=== PATIENT | female | born 1970 | race Caucasian/White ===

== ENCOUNTER → 2016-06-04 | Outpatient (CLI) | payer MEDICARE | END | disposition home or self-care (01) | LOC: LABWHC1 15:12 | PROVIDERS: ATTEND Nurse Practitioner | DX: Z51.81 Encounter for therapeutic drug level monitoring (principal) | CPT/HCPCS: 36415; 80178 ==

== ENCOUNTER → 2017-01-07 | Outpatient (CLI) | payer MEDICARE ==
--- NOTE | 2017-01-09 09:04 | MM ---
Reason for exam: screening (asymptomatic). Last mammogram was performed 1 year and 5 months ago. Physical Findings: A clinical breast exam by your physician is recommended on an annual basis and results should be correlated with mammographic findings. MG 3D Screening Mammo W/Cad Bilateral CC and MLO view(s) were taken. Prior study comparison: July 26, 2015, bilateral MG screening mammo w CAD. May 05, 2013, bilateral digital screening mammo w/CAD. The breast tissue is heterogeneously dense. This may lower the sensitivity of mammography. Finding: There are typically benign round, regional calcifications in the anterior position of the left breast. There is no discrete abnormality. ASSESSMENT: Benign, BI-RAD 2 RECOMMENDATION: Routine screening mammogram of both breasts in 1 year.
== END | disposition home or self-care (01) ==
LOC: RADMAMWWP 10:18
PROVIDERS: ATTEND Family Medicine
DX: Z12.31 Encounter for screening mammogram for malignant neoplasm of breast (principal)
CPT/HCPCS: 77063; G0202

== ENCOUNTER 2017-01-29 15:52 | Emergency (ER) | payer MEDICARE ==
[2017-01-29 15:59] VITALS: TEMP 99.1
--- NOTE | 2017-01-29 16:07 | ED ---
General Adult HPI - General Chief complaint: Abdominal Pain Stated complaint: abdominal pain Time Seen by Provider: 01/29/17 16:06 Source: patient Mode of arrival: ambulatory Limitations: no limitations - History of Present Illness Initial comments: Mary is a 46-year-old female who presents to the emergency department for evaluation of sudden onset of abdominal pain. Mary reports that she was in her usual state of health until around 1 PM today when she had sudden stabbing abdominal pain that caused her to double over. The pain was located in the. Umbilical region that radiated throughout her entire abdomen. She reports that she was concerned that maybe she was hungry and drink a glass of milk and had a Pop Tart which made the pain worse. She reports she applied a heating pad to the abdomen thinking this was similar to cramps however that did not help with the pain. The pain persisted for a number of hours which prompted her to come to the emergency department for further evaluation. Patient reports that her last bowel movement was this afternoon, immediately prior to the beginning of pain. She reports it was normal in color, caliber and consistency. She denies any hematochezia or melena. She denies any lower urinary tract symptoms. She denies any history of kidney stones. Patient denies any History of irritable bowel disease or any chronic abdominal pain. She did have a colonoscopy approximately 15 years ago for hemorrhoids. She has not had any follow-up colonoscopy since that time. That her last menses was approximately 3 months ago, she has followed with her tread booker about this and has been told that she is perimenopausal. She states that she had a pelvic ultrasound approximately 3 months ago which revealed some ovarian cysts which were unchanged from previous. Patient reports that she is not sexually active and is not concerning for any exposure sexual transmitted infections. - Related Data Home Medications Medication Instructions Recorded Confirmed ARIPiprazole [Abilify] 10 mg PO DAILY 02/15/14 05/05/14 Amitriptyline HCl [Amitriptyline 10 mg PO BID 02/15/14 05/05/14 HCl] Baclofen [Baclofen] 10 mg PO TID PRN 02/15/14 05/05/14 Budesonide-Formot 160-4.5 Mcg 2 puff INHALATION BID 02/15/14 05/05/14 [Symbicort 160-4.5 Mcg Inhaler] Cholecalciferol [Vitamin D3] 1,000 units PO DAILY 02/15/14 05/05/14 Fenofibrate [Fenofibrate] 160 mg PO DAILY 02/15/14 05/05/14 Fluticasone Propionate 16 gm NASAL BID 02/15/14 05/05/14 Gabapentin 800 mg PO TID 02/15/14 05/05/14 Glimepiride [Amaryl] 2 mg PO BID 02/15/14 05/05/14 Hydrocodone/Acetaminophen 10 mg PO TID PRN 02/15/14 05/05/14 [Hydrocodone/Acetaminophen 10-325] LORazepam [LORazepam] 0.5 mg PO TID PRN 02/15/14 05/05/14 [place] Carbonate 300 mg PO TID 02/15/14 05/05/14 Pantoprazole Sodium 40 mg PO DAILY 02/15/14 05/05/14 cloNIDine HCL [cloNIDine HCL] 0.2 mg PO HS 02/15/14 05/05/14 lamoTRIgine [lamoTRIgine] 200 mg PO DAILY 02/15/14 05/05/14 metFORMIN HCL [metFORMIN HCL] 500 mg PO BID 02/15/14 05/05/14 Previous Rx's Medication Instructions Recorded Docusate Sodium [Dok] 100 mg PO DAILY #30 capsule 01/29/17 Allergies Allergy/AdvReac Type Severity Reaction Status Date / Time No Known Allergies Allergy Verified 01/29/17 15:55 Review of Systems ROS Statement: Those systems with pertinent positive or pertinent negative responses have been documented in the HPI. ROS Other: All systems not noted in ROS Statement are negative. Constitutional: Reports: chills ENT: Denies: throat pain Respiratory: Denies: cough, dyspnea Cardiovascular: Denies: chest pain, palpitations Endocrine: Denies: fatigue Gastrointestinal: Reports: abdominal pain, nausea. Denies: vomiting, diarrhea, constipation, hematemesis, melena, hematochezia Genitourinary: Reports: abnormal menses (perimenopausal). Denies: urgency, dysuria, frequency Musculoskeletal: Denies: back pain Skin: Denies: rash, lesions Neurological: Denies: headache, weakness Psychiatric: Denies: anxiety, depression Hematological/Lymphatic: Denies: easy bleeding, easy bruising Past Medical History Past Medical History: Diabetes Mellitus, Fibromyalgia, GERD/Reflux, Hyperlipidemia, Musculoskeletal Disorder History of Any Multi-Drug Resistant Organisms: MRSA Date of last positivie culture/infection: 2011 MDRO Source:: RT AXILLA Past Surgical History: Back Surgery, Section Additional Past Surgical History / Comment(s): PAIN CLINIC SERVICES. eye surgery, lump taken off vocal cord, LEFT CATARACT REMOVED Past Anesthesia/Blood Transfusion Reactions: Previous Problems w/ Anesthesia Additional Past Anesthesia/Blood Transfusion Reaction / Comment(s): problem coming out of anesthetic, STATES VERY EMOTIONAL AND ANXIOUS Past Psychological History: Anxiety, Depression Smoking Status: Current every day smoker Past Alcohol Use History: None Reported Past Drug Use History: None Reported - Past Family History Mother Family Medical History: COPD, Dementia, Memory Impairment Additional Family Medical History / Comment(s): depression General Exam Limitations: no limitations General appearance: alert, in no apparent distress Head exam: Present: atraumatic, normocephalic Eye exam: Present: normal appearance, PERRL ENT exam: Present: normal exam, normal oropharynx Neck exam: Present: normal inspection, other (well healed surigcal scar) Respiratory exam: Present: normal lung sounds bilaterally. Absent: respiratory distress Cardiovascular Exam: Present: regular rate, normal rhythm GI/Abdominal exam: Present: soft, tenderness, guarding, normal bowel sounds. Absent: distended, rebound, rigid Rectal exam: Present: deferred Extremities exam: Present: normal inspection Back exam: Present: normal inspection Neurological exam: Present: alert, oriented X3 Psychiatric exam: Present: normal affect Skin exam: Present: warm, dry Course Vital Signs 01/29/17 01/29/17 15:56 17:52 Temperature 99.1 F Pulse Rate 68 61 Respiratory 18 18 Rate Blood Pressure 156/73 124/71 O2 Sat by Pulse 98 97 Oximetry - Reevaluation(s) Reevaluation #1: She reevaluated, sitting comfortably in ER bed. 01/29/17 18:20 Medical Decision Making - Medical Decision Making The patient was seen and evaluated, history was obtained from the patient History and physical exam are concerning for acute onset of area umbilical abdominal pain on exam the pain is worse in the right lower quadrant I will obtain labs, urinalysis and a computed tomography scan to evaluate cause of abdominal pain Urinanalysis with gross contamination with squamous cells, no evidence of infection Labs with mild leukocytosis DT of the abdomen reveals no acute bowel pathology, there is noted to have gallstones however her pain is not in this region I don't feel it is related to her presentation today All lab and CT findings were discussed with the patient. I advised the patient that her pain could be related to gas. I offered her suppositories and recommended she take a stool softener she did seem to have a heavy stool burden Advised the patient that based on her CT scans there is no evidence of acute appendicitis at this time. Advised to maintain soft diet, take stool softeners and return to the emergency department should she have any worsening abdominal pain, fevers, diarrhea, inability tolerate oral intake. All questions pertaining to care were answered to the best of my ability the patient was discharged home in stable condition. - Lab Data Result diagrams: 01/29/17 16:30 01/29/17 16:30 Lab Results 01/29/17 01/29/17 01/29/17 Range/Units 16:30 16:30 16:41 WBC 13.3 H (3.8-10.6) k/uL RBC 4.57 (3.80-5.40) m/uL Hgb 14.2 (11.4-16.0) gm/dL Hct 43.4 (34.0-46.0) % MCV 95.0 (80.0-100.0) fL MCH 31.0 (25.0-35.0) pg MCHC 32.7 (31.0-37.0) g/dL RDW 12.9 (11.5-15.5) % Plt Count 290 (150-450) k/uL Neutrophils % 74 % Lymphocytes % 18 % Monocytes % 4 % Eosinophils % 3 % Basophils % 1 % Neutrophils # 9.8 H (1.3-7.7) k/uL Lymphocytes # 2.3 (1.0-4.8) k/uL Monocytes # 0.5 (0-1.0) k/uL Eosinophils # 0.4 (0-0.7) k/uL Basophils # 0.1 (0-0.2) k/uL Sodium 139 (137-145) mmol/L Potassium 4.4 (3.5-5.1) mmol/L Chloride 106 (98-107) mmol/L Carbon Dioxide 21 L (22-30) mmol/L Anion Gap 12 mmol/L BUN 10 (7-17) mg/dL Creatinine 0.73 (0.52-1.04) mg/dL Est GFR (MDRD) Af Amer >60 (>60 ml/min/1.73 sqM) Est GFR (MDRD) Non-Af >60 (>60 ml/min/1.73 sqM) Glucose 196 H (74-99) mg/dL Calcium 10.0 (8.4-10.2) mg/dL Total Bilirubin 0.2 (0.2-1.3) mg/dL AST 26 (14-36) U/L ALT 41 (9-52) U/L Alkaline Phosphatase 78 (38-126) U/L Total Protein 7.4 (6.3-8.2) g/dL Albumin 4.5 (3.5-5.0) g/dL Urine Color Urine Appearance (Clear) Urine pH (5.0-8.0) Ur Specific [place] (1.001-1.035) Urine Protein (Negative) Urine Glucose (UA) (Negative) Urine Ketones (Negative) Urine Blood (Negative) Urine Nitrite (Negative) Urine Bilirubin (Negative) Urine Urobilinogen (<2.0) mg/dL Ur Leukocyte Esterase (Negative) Urine RBC (0-5) /hpf Urine WBC (0-5) /hpf Ur Squamous Epith Cells (0-4) /hpf Urine Mucus (None) /hpf Urine HCG, Qual Not Detected (Not Detectd) 01/29/17 Range/Units 16:41 WBC (3.8-10.6) k/uL RBC (3.80-5.40) m/uL Hgb (11.4-16.0) gm/dL Hct (34.0-46.0) % MCV (80.0-100.0) fL MCH (25.0-35.0) pg MCHC (31.0-37.0) g/dL RDW (11.5-15.5) % Plt Count (150-450) k/uL Neutrophils % % Lymphocytes % % Monocytes % % Eosinophils % % Basophils % % Neutrophils # (1.3-7.7) k/uL Lymphocytes # (1.0-4.8) k/uL Monocytes # (0-1.0) k/uL Eosinophils # (0-0.7) k/uL Basophils # (0-0.2) k/uL Sodium (137-145) mmol/L Potassium (3.5-5.1) mmol/L Chloride (98-107) mmol/L Carbon Dioxide (22-30) mmol/L Anion Gap mmol/L BUN (7-17) mg/dL Creatinine (0.52-1.04) mg/dL Est GFR (MDRD) Af Amer (>60 ml/min/1.73 sqM) Est GFR (MDRD) Non-Af (>60 ml/min/1.73 sqM) Glucose (74-99) mg/dL Calcium (8.4-10.2) mg/dL Total Bilirubin (0.2-1.3) mg/dL AST (14-36) U/L ALT (9-52) U/L Alkaline Phosphatase (38-126) U/L Total Protein (6.3-8.2) g/dL Albumin (3.5-5.0) g/dL Urine Color Yellow Urine Appearance Cloudy H (Clear) Urine pH 7.0 (5.0-8.0) Ur Specific [place] 1.017 (1.001-1.035) Urine Protein 2+ H (Negative) Urine Glucose (UA) Negative (Negative) Urine Ketones Negative (Negative) Urine Blood Small H (Negative) Urine Nitrite Negative (Negative) Urine Bilirubin Negative (Negative) Urine Urobilinogen <2.0 (<2.0) mg/dL Ur Leukocyte Esterase Negative (Negative) Urine RBC 1 (0-5) /hpf Urine WBC 2 (0-5) /hpf Ur Squamous Epith Cells 11 H (0-4) /hpf Urine Mucus Rare H (None) /hpf Urine HCG, Qual (Not Detectd) Disposition Clinical Impression: Abdominal pain Disposition: HOME SELF-CARE Condition: Good Instructions: Abdominal Pain (ED) Prescriptions: Docusate Sodium [Dok] 100 mg PO DAILY #30 capsule Referrals: Rachel Burns DO [Primary Care Provider] - 1-2 days
[2017-01-29] MEDS ORDERED: RX INFO: IV CONTRAST WAS GIVEN 1 EACH MISC MISCELLANE PRN (16:17)
[2017-01-29 16:43] LABS: Basophils # (A) 0.1 k/uL (0-0.2); Basophils % (A) 1 %; CH 31.1; CHCM 32.9; Eosinophils # (A) 0.4 k/uL (0-0.7); Eosinophils % (A) 3 %; HCT 43.4 % (34.0-46.0); HDW 2.37; HGB 14.2 gm/dL (11.4-16.0); Luc # (Auto) 0.16; Luc % (Auto) 1; Lymphocytes # (A) 2.3 k/uL (1.0-4.8); Lymphocytes % (A) 18 %; MCHC 32.7 g/dL (31.0-37.0); Mean Platelet Volume 7.4; Monocytes # (A) 0.5 k/uL (0-1.0); Monocytes % (A) 4 %; Neutrophils # (A) 9.8 k/uL (1.3-7.7); Neutrophils % (A) 74 %; RBC 4.57 m/uL (3.80-5.40); RDW 12.9 % (11.5-15.5); WBC 13.3 k/uL (3.8-10.6); WBC (Perox) 12.14
[2017-01-29 16:53] LABS: ALT 41 U/L (9-52); AST 26 U/L (14-36); Alkaline Phosphatase 78 U/L (38-126); Anion Gap 12 mmol/L; Blood Urea Nitrogen 10 mg/dL (7-17); Carbon Dioxide 21 mmol/L (22-30); Chloride 106 mmol/L (98-107); Glucose 196 mg/dL (74-99); Non-African American GFR(MDRD) >60 (>60 ml/min/1.73 sqM); Potassium 4.4 mmol/L (3.5-5.1); Sodium 139 mmol/L (137-145); Total Bilirubin 0.2 mg/dL (0.2-1.3); Total Protein 7.4 g/dL (6.3-8.2)
[2017-01-29 16:56] LABS: Appearance,Urine Cloudy (Clear); Bilirubin,Urine Negative (Negative); Glucose,Urine (UA) Negative (Negative); Ketones,Urine Negative (Negative); Leukocyte Esterase,Urine Negative (Negative); Mucus,Urine Rare /hpf; Nitrite,Urine Negative (Negative); Particle Count 4603; Protein,Urine 2+ (Negative); RBC,Urine 1 /hpf (0-5); Specific Gravity,Urine 1.017 (1.001-1.035); Squamous Epithelial Cell,Urine 11 /hpf (0-4); UA Billing (MACRO vs. MICRO) MICRO; Urobilinogen,Urine <2.0 mg/dL (<2.0); WBC,Urine 2 /hpf (0-5)
--- NOTE | 2017-01-29 17:56 | CT ---
EXAMINATION TYPE: CT abdomen pelvis w con DATE OF EXAM: 01/29/2017 COMPARISON: NONE HISTORY: Right lower quadrant pain and nausea today. CT DLP: 746.70 mGycm Automated exposure control for dose reduction was used. TECHNIQUE: Helical acquisition of images from the lung bases through the pelvis have been completed. CONTRAST: Performed without Oral Contrast and with IV Contrast, patient injected with 100 mL of Omnipaque 300. FINDINGS: LUNG BASES: No significant abnormality is appreciated. AORTA: No significant abnormality is appreciated. LIVER/GB: The liver is enlarged and shows low attenuation likely due to hepatic steatosis. Dependent high attenuation within the gallbladder compatible with stones. PANCREAS: No significant abnormality is seen. SPLEEN: No significant abnormality is seen. ADRENALS: No significant abnormality is seen. KIDNEYS: No significant abnormality is seen. REPRODUCTIVE ORGANS: No significant abnormality is seen BOWEL: No significant abnormality is seen. The appendix is normal. FREE AIR: No Free Air visible. ASCITES: None visible. PELVIC ADENOPATHY: None visualized. RETROPERITONEAL ADENOPATHY: No Retroperitoneal Adenopathy visible. URINARY BLADDER: No significant abnormality is seen. OSSEOUS STRUCTURES: No significant abnormality is seen. IMPRESSION: HEPATIC STEATOSIS, CHOLELITHIASIS.
[2017-01-29 18:39] VITALS: BP 148/78; PULSE 72; RESP 16
== END 2017-01-29 18:39 | disposition home or self-care (01) ==
LOC: EC 15:52
DX: R10.9 Unspecified abdominal pain (principal); D72.829 Elevated white blood cell count, unspecified; E11.9 Type 2 diabetes mellitus without complications; K21.9 Gastro-esophageal reflux disease without esophagitis; M79.7 Fibromyalgia; F32.9 Major depressive disorder, single episode, unspecified; F17.200 Nicotine dependence, unspecified, uncomplicated; Z86.14 Personal history of Methicillin resistant Staphylococcus aureus infection; Z79.51 Long term (current) use of inhaled steroids; Z87.42 Personal history of other diseases of the female genital tract; Z79.84 Long term (current) use of oral hypoglycemic drugs; Z79.899 Other long term (current) drug therapy
CPT/HCPCS: 99284 ×2; 36415; 80053; 85025; 81001; 81025; 74177; Q9967

== ENCOUNTER 2017-10-22 15:39 | Emergency (ER) | payer OTHER, MEDICARE ==
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
[2017-10-22 16:46] LABS: Basophils # (A) 0.1 k/uL (0-0.2); Basophils % (A) 1 %; Eosinophils # (A) 0.2 k/uL (0-0.7); Eosinophils % (A) 2 %; HCT 35.7 % (34.0-46.0); HGB 11.8 gm/dL (11.4-16.0); Lymphocytes # (A) 2.1 k/uL (1.0-4.8); Lymphocytes % (A) 25 %; MCH 31.3 pg (25.0-35.0); MCHC 33.2 g/dL (31.0-37.0); MCV 94.1 fL (80.0-100.0); Mean Platelet Volume 7.7; Monocytes # (A) 0.3 k/uL (0-1.0); Monocytes % (A) 4 %; Neutrophils # (A) 5.6 k/uL (1.3-7.7); Neutrophils % (A) 66 %; Platelet Count 248 k/uL (150-450); RBC 3.79 m/uL (3.80-5.40); RDW 13.5 % (11.5-15.5); WBC 8.4 k/uL (3.8-10.6)
[2017-10-22 16:50] LABS: ALT 58 U/L (9-52); AST 33 U/L (14-36); Albumin 4.3 g/dL (3.5-5.0); Alkaline Phosphatase 86 U/L (38-126); Anion Gap 11 mmol/L; Blood Urea Nitrogen 17 mg/dL (7-17); Carbon Dioxide 23 mmol/L (22-30); Chloride 104 mmol/L (98-107); Glucose 298 mg/dL (74-99); Sodium 138 mmol/L (137-145); Total Bilirubin 0.3 mg/dL (0.2-1.3); Total Protein 6.8 g/dL (6.3-8.2)
[2017-10-22 16:51] LABS: Partial Thromboplastin Time 23.5 sec (22.0-30.0); Prothrombin Time 9.9 sec (9.0-12.0)
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
[2017-10-22 18:54] VITALS: BP 126/76; PULSE 77; RESP 18; TEMP 97.8
[2017-10-22] MEDS ORDERED: ORPHENADRINE 30 MG/ML 2 ML VIAL IVP STA (18:56)
== END 2017-10-22 19:16 | disposition home or self-care (01) ==
LOC: EC 15:39
DX: M79.671 Pain in right foot (principal); M79.672 Pain in left foot; E11.9 Type 2 diabetes mellitus without complications; M79.7 Fibromyalgia; K21.9 Gastro-esophageal reflux disease without esophagitis; E78.5 Hyperlipidemia, unspecified; F32.9 Major depressive disorder, single episode, unspecified; F41.9 Anxiety disorder, unspecified; F17.200 Nicotine dependence, unspecified, uncomplicated; Z86.14 Personal history of Methicillin resistant Staphylococcus aureus infection; Z79.51 Long term (current) use of inhaled steroids; Z79.84 Long term (current) use of oral hypoglycemic drugs; Z79.899 Other long term (current) drug therapy; V43.52XA Car driver injured in collision with other type car in traffic accident, initial encounter; Y92.410 Unspecified street and highway as the place of occurrence of the external cause
CPT/HCPCS: 36415; 93005; 80053; 85025; 85610; 85730; 73630; 71046; 71260; 74177; 99284; 96374; J2360; Q9967

== ENCOUNTER → 2018-04-03 | Outpatient (CLI) | payer MEDICARE ==
--- NOTE | 2018-04-03 14:16 | CONS ---
CONSULTATION DATE OF SERVICE: 04/12/2018 A 47-year-old lady who has been evaluated in the Sleep Center for possible obstructive sleep apnea-hypopnea syndrome and significant excessive daytime sleepiness. HISTORY OF PRESENT ILLNESS/SLEEP-WAKE EVALUATION: Patient's usual sleep schedule from around 10 p.m. until 6 a.m. She does have problem with falling asleep, but after falling asleep, has multiple awakenings from sleep and sometimes is difficult to initiate sleep again. She snores, wakes up with a choking, dry mouth, grinding teeth, panic attack, heartburn, sleep talking, restless legs, nocturia. She usually sleeps on the side position. She started to see her dreams right away after closing to eye. Sometimes she has vivid dreams. In the morning she wakes up tired, has difficulties to pay attention, falling asleep during the day, worries about her sleep, has problems with memory, concentration, irritability, depression and anxiety. [place] Sleepiness Scale significantly increased to 21. Positive history of possible hypnagogic hallucinations. PAST MEDICAL HISTORY: Positive for asthma, hypothyroidism, anxiety, depression, diabetes mellitus. PAST SURGICAL HISTORY: Neck surgery in 2010, tonsillectomy. REVIEW OF SYSTEMS: Multiple awakenings from sleep, hot flushes, sleepiness during the day. MEDICATIONS: Gabapentin, fenofibrate, Janumet, lamotrigine, iron supplement, bupropion, BuSpar, pantoprazole, lithium supplement, lithium carbonate, levothyroxine, D3, montelukast, quetiapine, duloxetine, lamotrigine, Flonase, [place], Dulcolax, Symbicort inhaler. SOCIAL HISTORY: Positive for smoking up to 2 packs a day for 30 years. Alcohol consumption rarely. FAMILY HISTORY: Hypertension, heart problems, hyperlipidemia, fibromyalgia, arthritis, asthma, sinus headaches, colon problems, emphysema, snoring, pneumonia, headaches, cancer, insomnia, acid reflux, also diabetes, thyroid problems, mental illness, restless legs. PHYSICAL EXAM: A 47-year-old, lady without distress. BP 120/68, HR 66, RR 16, height 5 foot 1 inch, weight 162 pounds, body mass index 30.6, temperature 98.0, oxygen saturation at room air 98%. OROPHARYNX: Small oropharyngeal air space. Low position of soft palate. Neck 15 inches in circumference, restriction of nasal breathing bilaterally. ABDOMEN: Obese. EXTREMITIES: Minimal 1+ bilateral ankle edema. HEENT PERRLA, EOMI, evaluation of oropharynx showed tongue protrudes midline. Neck Supple, no JVD. Thyroid is not palpable. LUNGS Clear to percussion and to auscultation. Good air exchange. No wheezing or rhonchi. HEART S1, S2 regular. No murmurs, gallops, or rubs. INTELLIGENCE AGENT Awake, alert, and oriented X3. Cranial nerves 2 to 7 intact. There is no fasciculation or atrophy. noted. No focal deficits observed. IMPRESSION: 1. Snoring, awakenings from sleep with choking, low position of soft palate, significant excessive daytime sleepiness, obstructive sleep apnea-hypopnea syndrome. 2. Excessive daytime sleepiness. [place] Sleepiness Scale is 21, positive history of questionable hypnagogical hallucinations. Differential diagnosis should include narcolepsy. 3. Diabetes mellitus. 4. Asthma. 5. History of anxiety. 6. History of depression. 7. No history of hypertension with blood pressures of the wounds. Please see his notes. 8. Status post neck surgery. 9. Status post tonsillectomy. 10.Premenopausal plan is take. PLAN: 1. Polysomnography for evaluation of patient's breathing during sleep. 2. CPAP/BiPAP titration if sleep study confirms obstructive sleep apnea-hypopnea syndrome. 3. Preferable position during sleep on the side. 4. No driving if patient feels any sleepiness. 5. I will see patient for follow up visit to explain results of testing and following plan. 6. Multiple sleep latency test if sleep study will be negative for any physical abnormalities of sleep. Thank you very much for referring the patient for consultation. Sincerely, Ubaldo Lopez MD, PhD, FAASM Diplomat of [employer] [place] Program Technician of [facility] [place] MMODL / IJN: [id number] /
== END | disposition home or self-care (01) ==
LOC: SLEEP 11:39
PROVIDERS: ATTEND Internal Medicine
DX: G47.33 Obstructive sleep apnea (adult) (pediatric) (principal); E11.9 Type 2 diabetes mellitus without complications; J45.909 Unspecified asthma, uncomplicated; F41.9 Anxiety disorder, unspecified; F32.9 Major depressive disorder, single episode, unspecified; F17.210 Nicotine dependence, cigarettes, uncomplicated; E03.9 Hypothyroidism, unspecified; Z98.890 Other specified postprocedural states; Z90.89 Acquired absence of other organs; Z79.899 Other long term (current) drug therapy; Z79.891 Long term (current) use of opiate analgesic
CPT/HCPCS: 99211

== ENCOUNTER → 2018-05-21 | Outpatient (CLI) | payer MEDICARE ==
--- NOTE | 2018-05-21 14:44 | PN ---
PROGRESS NOTE DATE OF SERVICE: 05/21/2018 A 48-year-old lady who has been followed in Sleep Center to discuss results of her sleep study and following plan. I discussed results of the sleep study with patient and family in detail. Diagnostic sleep study done on 05/04/2018. During the study, patient showed a very high sleep efficiency 95.4% with a quite short sleep latency 6.2 minutes. She went through all stages of sleep. The amount of delta sleep and REM sleep have been decreased. No significant respiratory abnormalities have been documented during the sleep study. Total apnea-hypopnea index 2.6. No significant oxygen desaturation has been documented. Total oxygen level was below normal only for 0.2 minutes. No periodic limb movements have been documented. Multiple sleep latency test done on the following day consisted from 5 naps. The patient fell asleep on 3 naps and did not fell asleep on 2 naps. Mean sleep latency was 13 minutes counting when patient did not fell asleep with sleep latency is 20 minutes by the rules for MSLT. Mean sleep latency of 30 minutes, considered to be in normal range. At home, patient sometimes still wake up in the middle of the night, but while discussing this issue, we realized that it could be related to pets at home and also granddaughter at home. [place] Sleepiness Scale today is significantly increased to 19. MEDICATIONS: Gabapentin, fenofibrate, Janumet, lamotrigine, bupropion, iron supplement, BuSpar, pantoprazole, lithium, levothyroxine, montelukast, , duloxetine, lamotrigine, Flonase, [place], Dulcolax, Symbicort. PHYSICAL EXAM: Patient in no distress. BP 149/77, HR 74, RR 18, weight 162, height 5.1, temperature 98.5 5. Oxygen saturation at room air 97%. OROPHARYNX: Low position of soft palate. ABDOMEN: Slightly obese. Neck Supple, no JVD. Thyroid is not palpable. LUNGS Clear to percussion and to auscultation. Good air exchange. No wheezing or rhonchi. HEART S1, S2 regular. No murmurs, gallops, or rubs. EXTREMITIES No clubbing or cyanosis. BEAD WIRE INSULATOR Awake, alert, and oriented X3. Cranial nerves 2 to 7 intact. There is no fasciculation or atrophy. noted. No focal deficits observed. IMPRESSION: 1. No significant respiratory abnormalities have been documented during the sleep study following today's criteria. 2. Multiple sleep latency tests showed borderline sleep latency. No shortening of sleep latency which probably rule out possibility of hypersomnia or narcolepsy. 3. During the multiple sleep latency test, patient did not take some of her medications and she is taking a significant amount of psychiatric medications and subsequently they could be is the additional risk factor for developing sleepiness during the day and again multiple sleep latency test done without those medications. Subsequently, we do not know how test would be if she will be on medications and possibly it might show sleepiness. 4. Multiple sleep latency test done on the following day after patient slept in Sleep Center. During that night, patient slept for 7-1/2 hours, subsequently at nights if she does sleep well at home, on the following day she might feel more sleepy than she was during the multiple sleep latency test. 5. History of depression. 6. History of anxiety. 7. Diabetes mellitus. 8. Asthma. PLAN: 1. Sleep hygiene with regular time in bed for 7-1/2 to 8 hours every night. 2. Preferable position during the sleep on the side and up. 3. Losing weight. 4. Precautions related to driving. No driving if feel any sleepiness. Thank you very much for allowing me to participate in the management of your patient. Sincerely, Ubaldo Lopez MD, PhD, FAASM Diplomat of [employer] Lead Assistant Manager of [facility] [place] MMODL / IJN: [id number] /
== END ==
LOC: SLEEP 13:21
PROVIDERS: ATTEND Internal Medicine
DX: J45.909 Unspecified asthma, uncomplicated (principal); E11.9 Type 2 diabetes mellitus without complications; F32.9 Major depressive disorder, single episode, unspecified; F41.9 Anxiety disorder, unspecified; Z79.899 Other long term (current) drug therapy

== ENCOUNTER → 2018-08-21 | Outpatient (CLI) | payer MEDICARE ==
--- NOTE | 2018-08-21 11:09 | SFUN ---
SLEEP CENTER FOLLOW UP NOTE DATE OF SERVICE: 08/21/2018 This 48-year-old lady had been followed in the sleep center for treatment of obstructive sleep apnea-hypopnea syndrome. Recently patient had a home sleep apnea test which showed obstructive sleep apnea- hypopnea syndrome with apnea-hypopnea index 12.9 and oxygen desaturation to 83%. After that, patient had CPAP titration and was started on treatment with CPAP. Today is her first visit after she was started on treatment with CPAP. She is trying to use CPAP equipment. Some days she feels better, some days not, especially she feels better for the last week. [place] Sleepiness Scale today still in high range 19. I checked her CPAP unit, range of the pressure is 6 to 10, average pressure 9.8, leak 31 L/minute. The patient is using a nasal pillow mask. The usage is 26 out of 30 nights and 16 out of 30 nights for more than 4 hours. Average usage 4.2 hours. Apnea- hypopnea index 8.1, which is slightly higher than I would like to see. MEDICATIONS: Gabapentin, fenofibrate, Janumet, lamotrigine, iron, , pantoprazole, lithium carbonate, levothyroxine, montelukast, duloxetine, Flonase, [place], Symbicort inhaler. PHYSICAL EXAMINATION: During physical exam, patient in no distress. VITAL SIGNS: BP 117/66, HR 70, RR 16, weight 163 pounds, temperature 98.4, oxygen saturation at room air 98%. HEENT: PERRLA, EOMI. Oropharynx low position of soft palate. Mallampati 4. NECK: Supple, no JVD. Thyroid is not palpable. LUNGS: Clear to percussion and to auscultation. Good air exchange. No wheezing or rhonchi. HEART: S1, S2 regular. No murmurs, gallops, or rubs. ABDOMEN: Soft and nontender. Bowel sounds are present. No organomegaly appreciated. EXTREMITIES: No clubbing or cyanosis. MONOGRAM MACHINE OPERATOR: Awake, alert, and oriented X3. Cranial nerves 2 to 7 intact. There is no fasciculation or atrophy. noted. No focal deficits observed. IMPRESSION: 1. Obstructive sleep apnea-hypopnea syndrome. The patient started to use CPAP equipment, still has some problem with the usage machine. Significant leak possibly opening her mouth. 2. History of asthma. 3. Diabetes mellitus. 4. History of anxiety. 5. History of depression. 6. Status post neck surgery. 7. Status post tonsillectomy. PLAN: 1. Patient will try to use chinstrap to prevent possible bleeding from her mouth. I believe and patient believes that she opened her mouth during the sleep. 2. She will continue to use CPAP equipment every night for the whole night. 3. Losing weight. 4. Sleep hygiene with regular time in bed for at least 8 hours. 5. No driving if feeling any sleepiness. Thank you very much for allowing me to participate in management of your patient. Sincerely, Ubaldo Lopez MD, PhD, FAASM Diplomat of [place] [employer] [place] [employer] of [employer] Medicine Painting Department Supervisor of [facility] [place] GEO / CHE: [id number] /
== END | disposition home or self-care (01) ==
LOC: SLEEP 10:15
PROVIDERS: ATTEND Internal Medicine
DX: G47.33 Obstructive sleep apnea (adult) (pediatric) (principal); J45.909 Unspecified asthma, uncomplicated; E11.9 Type 2 diabetes mellitus without complications; F41.9 Anxiety disorder, unspecified; F32.9 Major depressive disorder, single episode, unspecified; Z90.89 Acquired absence of other organs; Z98.890 Other specified postprocedural states; Z79.51 Long term (current) use of inhaled steroids; Z99.89 Dependence on other enabling machines and devices; Z79.84 Long term (current) use of oral hypoglycemic drugs; Z79.891 Long term (current) use of opiate analgesic; Z79.899 Other long term (current) drug therapy

== ENCOUNTER → 2018-10-23 | Outpatient (CLI) | payer MEDICARE ==
--- NOTE | 2018-10-23 15:46 | PN ---
PROGRESS NOTE DATE OF SERVICE: 10/23/2018 This patient is a 48-year-old lady who has been followed in Sleep Center for treatment of obstructive sleep apnea-hypopnea syndrome. The patient continues to use her CPAP equipment. No significant problems related to the mask. [place] Sleepiness Scale today is 13, which is less than during her last visit, when it was 19. I checked the patient's CPAP unit. Range of the pressure is 6 to 10. Usage is 22/30 nights; in 9/30 nights for more than 4 hours. Average usage is 3.4 hours. Pressure is 9.9 cm of water. Leak is 26 L/minute. Apnea-hypopnea index 7.6. MEDICATIONS: 1. Gabapentin. 2. Fenofibrate. 3. Janumet. 4. Lamotrigine. 5. Pantoprazole. 6. [place]. 7. Levothyroxine. 8. Montelukast. 9. Duloxetine. 10.Flonase. 11.[place]. 12.Symbicort inhaler. PHYSICAL EXAMINATION: GENERAL: A pleasant patient in no distress. VITAL SIGNS: BP 79/56, HR 80, RR 16, height 5 feet 1 inch, weight 167, body mass index 31.5, temperature 98.0. HEENT: PERRLA, EOMI. Evaluation of oropharynx showed tongue protrudes midline. Extremely low position of soft palate. Mallampati IV. NECK: Supple. No JVD. Thyroid is not palpable. LUNGS: Clear to percussion and to auscultation. Good air exchange. No wheezing or rhonchi. HEART: S1, S2 regular. No murmurs, gallops or rubs. ABDOMEN: ABDOMEN: Soft. No tenderness. EXTREMITIES: No clubbing or cyanosis. PLANT SUPERINTENDENT: Awake, alert, and oriented X3. Cranial nerves 2 to 7 intact. There is no fasciculation or atrophy. noted. No focal deficits observed. IMPRESSION: 1. Obstructive sleep apnea-hypopnea syndrome. The patient used her machine 22/30 nights but not always for more than 4 hours because she sleeps quite a short amount of hours. There are still mild abnormalities of respiration while using her CPAP equipment. 2. Asthma. 3. Diabetes mellitus. 4. History of anxiety. 5. History of depression. 6. Status post neck surgery. 7. Status post tonsillectomy. PLAN: 1. I will increase maximal range of pressure in the machine to 12 cm of water. 2. Patient will continue to use CPAP equipment every night for the whole night. I encouraged the patient to increase time in bed to at least preferably 7 hours. 3. Losing weight. 4. No driving if feeling any sleepiness. 5. Will maintain all necessary prescriptions for CPAP supplies. Thank you very much for allowing me to participate in the management of your patient. Sincerely, Ubaldo Lopez MD, PhD, FAASM Diplomat of [place] [employer] Internal Medicine Chisel Worker of [facility] [place] MMODL / IJN: [id number] /
== END ==
LOC: SLEEP 14:14
PROVIDERS: ATTEND Internal Medicine
DX: G47.33 Obstructive sleep apnea (adult) (pediatric) (principal); J45.909 Unspecified asthma, uncomplicated; E11.9 Type 2 diabetes mellitus without complications; F41.8 Other specified anxiety disorders; Z98.890 Other specified postprocedural states; Z90.89 Acquired absence of other organs; Z99.89 Dependence on other enabling machines and devices; Z79.899 Other long term (current) drug therapy; Z79.891 Long term (current) use of opiate analgesic

== ENCOUNTER → 2018-12-05 | Outpatient (CLI) | payer MEDICARE ==
--- NOTE | 2018-12-07 07:49 | MR ---
EXAMINATION TYPE: MR brain wo/w con DATE OF EXAM: 12/05/2018 COMPARISON: NONE HISTORY: Mild cognitive impairment, so stated TECHNIQUE: Multiplanar, multisequence images of the brain and brainstem is performed without and with IV contras t, utilizing 7.5 mL intravenous Gadavist . FINDINGS: Diffusion weighted images demonstrate no evidence of a recent infarct or other diffusion ab normality. There is no worrisome extra-axial fluid collection. There is mild diffuse ventricular and sulcal prominence. There are some scattered foci of T2 hyperintensity seen throughout the white emir er bilaterally. Approximately 5-10 scattered lesions are seen for reference there are 3 adjacent lesi ons near left frontal parietal junction at level of melton radiata axial image 19. Midline structures demonstrate normal morphology. The craniocervical junction appears within normal limits. Post contrast images demonstrate no abnormal enhancement. The dural venous sinuses appear pa tent. The visualized sinuses are clear and the globes are intact. IMPRESSION: Mild generalized age-related cerebral atrophy and chronic small vessel ischemic change.
== END ==
LOC: RADMRIMAIN 16:41
PROVIDERS: ATTEND Physician Assistant
DX: I67.82 Cerebral ischemia (principal); G31.1 Senile degeneration of brain, not elsewhere classified
CPT/HCPCS: 70553; A9585

== ENCOUNTER 2022-04-14 16:49 | Emergency (ER) | payer MEDICARE ==
[2022-04-14 17:42] VITALS: TEMP 98.3
[2022-04-14] MEDS ORDERED: FUROSEMIDE 10 MG/ML 4 ML VIAL IV STA (18:44)
--- NOTE | 2022-04-14 18:49 | ED ---
General Adult HPI - General Chief complaint: Extremity Problem,Nontraumatic Stated complaint: Legs and feet swollen Time Seen by Provider: 04/14/22 18:11 Source: patient, RN notes reviewed Mode of arrival: ambulatory Limitations: no limitations - History of Present Illness Initial comments: Patient is a pleasant 51-year-old female presenting to the emergency department with concerns with leg edema. Onset of symptoms was around 3 days ago. Patient denies any pain or calf pain. No chest pain or shortness of breath. Patient does have some milder symptoms previously however not quite as bad as today. Symptoms have progressively worsened since onset. - Related Data Home Medications Medication Instructions Recorded Confirmed Budesonide-Formot 160-4.5 Mcg 2 puff INHALATION RT-BID 02/15/14 06/10/18 [Symbicort 160-4.5 Mcg Inhaler] Cholecalciferol [Vitamin D3] 2,000 units PO DAILY 02/15/14 06/10/18 Gabapentin 800 mg PO TID 02/15/14 06/10/18 Hydrocodone/Acetaminophen 10 mg PO DAILY PRN 02/15/14 06/10/18 [Hydrocodone/Acetaminophen 10-325] [place] Carbonate 300 mg PO TID 02/15/14 06/10/18 Pantoprazole Sodium 40 mg PO DAILY 02/15/14 06/10/18 Fenofibrate Nanocrystallized 145 mg PO DAILY 01/29/17 06/10/18 [Fenofibrate] Ferrous Sulfate [Feosol] 325 mg PO QID 01/29/17 06/10/18 Levothyroxine Sodium [Synthroid] 50 mcg PO DAILY 01/29/17 06/10/18 QUEtiapine [SEROquel] 200 mg PO HS 01/29/17 06/10/18 ARIPiprazole [Abilify] 2 mg PO DAILY 10/22/17 06/10/18 Ascorbic Acid [Vitamin C] 500 mg PO DAILY 10/22/17 06/10/18 Fluticasone Nasal [place] [Flonase 1 spray EA NOSTRIL BID 10/22/17 06/10/18 Nasal [place]] buPROPion HCL [Wellbutrin XL] 300 mg PO DAILY 10/22/17 06/10/18 lamoTRIgine [LaMICtal] 100 mg PO QAM 10/22/17 06/10/18 lamoTRIgine [LaMICtal] 200 mg PO HS 10/22/17 06/10/18 lisinopriL [Prinivil] 10 mg PO DAILY 10/22/17 06/10/18 Previous Rx's Medication Instructions Recorded Cyclobenzaprine [Flexeril] 10 mg PO TID PRN #15 tablet 10/22/17 Cyclobenzaprine [Flexeril] 10 mg PO TID PRN #15 tab 05/23/19 Allergies Allergy/AdvReac Type Severity Reaction Status Date / Time No Known Allergies Allergy Verified 04/14/22 17:41 Review of Systems ROS Statement: Those systems with pertinent positive or pertinent negative responses have been documented in the HPI. ROS Other: All systems not noted in ROS Statement are negative. Constitutional: Denies: fever Eyes: Denies: eye pain ENT: Denies: ear pain Respiratory: Denies: cough, dyspnea Cardiovascular: Reports: edema. Denies: chest pain, palpitations, dyspnea on exertion, orthopnea, syncope Endocrine: Denies: fatigue Gastrointestinal: Denies: abdominal pain, vomiting Genitourinary: Denies: dysuria Musculoskeletal: Denies: back pain Skin: Denies: lesions Neurological: Denies: weakness Past Medical History Past Medical History: Diabetes Mellitus, Fibromyalgia, GERD/Reflux, Hyperlipidemia, Musculoskeletal Disorder History of Any Multi-Drug Resistant Organisms: MRSA Date of last positivie culture/infection: 2011 MDRO Source:: RT AXILLA Past Surgical History: Back Surgery, Section Additional Past Surgical History / Comment(s): PAIN CLINIC SERVICES. eye surgery, lump taken off vocal cord, LEFT CATARACT REMOVED Past Anesthesia/Blood Transfusion Reactions: Previous Problems w/ Anesthesia Additional Past Anesthesia/Blood Transfusion Reaction / Comment(s): problem comi ng out of anesthetic, STATES VERY EMOTIONAL AND ANXIOUS Past Psychological History: Anxiety, Depression Smoking Status: Current every day smoker Past Alcohol Use History: None Reported Past Drug Use History: None Reported - Past Family History Mother Family Medical History: COPD, Dementia, Memory Impairment Additional Family Medical History / Comment(s): depression General Exam Limitations: no limitations General appearance: alert, in no apparent distress Head exam: Present: normocephalic Eye exam: Present: normal appearance Neck exam: Present: normal inspection Respiratory exam: Present: normal lung sounds bilaterally. Absent: rales Cardiovascular Exam: Present: regular rate, normal rhythm GI/Abdominal exam: Present: soft. Absent: tenderness Extremities exam: Present: pedal edema. Absent: calf tenderness Neurological exam: Present: alert Psychiatric exam: Present: normal affect, normal mood Skin exam: Present: normal color Course Vital Signs 04/14/22 04/14/22 04/14/22 17:39 19:00 19:30 Temperature 98.3 F Pulse Rate 83 80 82 Respiratory 16 20 20 Rate Blood Pressure 147/83 130/73 134/78 O2 Sat by Pulse 96 96 96 Oximetry EKG Findings - EKG Results: EKG: interpreted by ERMD, sinus rhythm, normal axis, normal QRS, normal ST/T Medical Decision Making - Medical Decision Making Patient reevaluated. Patient does have some improvement with swelling already. Patient and family updated on results and need for follow-up. Patient states he has an appointment for Saturday. - Lab Data Result diagrams: 04/14/22 19:00 04/14/22 19:00 Lab Results 04/14/22 04/14/22 04/14/22 Range/Units 19:00 19:00 19:00 WBC 11.7 H (3.8-10.6) k/uL RBC 4.07 (3.80-5.40) m/uL Hgb 13.1 (11.4-16.0) gm/dL Hct 39.0 (34.0-46.0) % MCV 95.7 (80.0-100.0) fL MCH 32.1 (25.0-35.0) pg MCHC 33.6 (31.0-37.0) g/dL RDW 12.5 (11.5-15.5) % Plt Count 226 (150-450) k/uL MPV 9.0 Neutrophils % 68 % Lymphocytes % 23 % Monocytes % 4 % Eosinophils % 3 % Basophils % 1 % Neutrophils # 7.9 H (1.3-7.7) k/uL Lymphocytes # 2.7 (1.0-4.8) k/uL Monocytes # 0.5 (0-1.0) k/uL Eosinophils # 0.3 (0-0.7) k/uL Basophils # 0.1 (0-0.2) k/uL PT 10.2 (9.0-12.0) sec INR 1.0 (<1.2) APTT 25.4 (22.0-30.0) sec Sodium 140 (137-145) mmol/L Potassium 4.6 (3.5-5.1) mmol/L Chloride 108 H (98-107) mmol/L Carbon Dioxide 24 (22-30) mmol/L Anion Gap 8 mmol/L BUN 23 H (7-17) mg/dL Creatinine 0.66 (0.52-1.04) mg/dL Est GFR (CKD-EPI)AfAm >90 (>60 ml/min/1.73 sqM) Est GFR (CKD-EPI)NonAf >90 (>60 ml/min/1.73 sqM) Glucose 145 H (74-99) mg/dL Plasma Lactic Acid Hugo (0.7-2.0) mmol/L Calcium 10.1 (8.4-10.2) mg/dL Total Bilirubin 0.2 (0.2-1.3) mg/dL AST 37 H (14-36) U/L ALT 44 H (4-34) U/L Alkaline Phosphatase 88 (38-126) U/L NT-Pro-B Natriuret Pep pg/mL Total Protein 7.3 (6.3-8.2) g/dL Albumin 4.5 (3.5-5.0) g/dL 04/14/22 04/14/22 Range/Units 19:00 19:00 WBC (3.8-10.6) k/uL RBC (3.80-5.40) m/uL Hgb (11.4-16.0) gm/dL Hct (34.0-46.0) % MCV (80.0-100.0) fL MCH (25.0-35.0) pg MCHC (31.0-37.0) g/dL RDW (11.5-15.5) % Plt Count (150-450) k/uL MPV Neutrophils % % Lymphocytes % % Monocytes % % Eosinophils % % Basophils % % Neutrophils # (1.3-7.7) k/uL Lymphocytes # (1.0-4.8) k/uL Monocytes # (0-1.0) k/uL Eosinophils # (0-0.7) k/uL Basophils # (0-0.2) k/uL PT (9.0-12.0) sec INR (<1.2) APTT (22.0-30.0) sec Sodium (137-145) mmol/L Potassium (3.5-5.1) mmol/L Chloride (98-107) mmol/L Carbon Dioxide (22-30) mmol/L Anion Gap mmol/L BUN (7-17) mg/dL Creatinine (0.52-1.04) mg/dL Est GFR (CKD-EPI)AfAm (>60 ml/min/1.73 sqM) Est GFR (CKD-EPI)NonAf (>60 ml/min/1.73 sqM) Glucose (74-99) mg/dL Plasma Lactic Acid Hugo 0.9 (0.7-2.0) mmol/L Calcium (8.4-10.2) mg/dL Total Bilirubin (0.2-1.3) mg/dL AST (14-36) U/L ALT (4-34) U/L Alkaline Phosphatase (38-126) U/L NT-Pro-B Natriuret Pep 16 pg/mL Total Protein (6.3-8.2) g/dL Albumin (3.5-5.0) g/dL - Radiology Data Interpreted by me: Chest x-ray shows no acute process Disposition Clinical Impression: Pedal edema Disposition: HOME SELF-CARE Condition: Stable Instructions (If sedation given, give patient instructions): Leg Edema (ED) Additional Instructions: Please do follow-up with primary care physician Saturday as planned. Return for chest pain, difficulty breathing, fever, worsening or changing symptoms, Pain, or any other concerns. Is patient prescribed a controlled substance at d/c from ED?: No Referrals: Rachel Burns DO [Primary Care Provider] - 1-2 days Time of Disposition: 20:17
[2022-04-14 19:19] LABS: Basophils # (A) 0.1 k/uL (0-0.2); Basophils % (A) 1 %; Eosinophils # (A) 0.3 k/uL (0-0.7); Eosinophils % (A) 3 %; HGB 13.1 gm/dL (11.4-16.0); Lymphocytes # (A) 2.7 k/uL (1.0-4.8); Lymphocytes % (A) 23 %; MCH 32.1 pg (25.0-35.0); MCHC 33.6 g/dL (31.0-37.0); MCV 95.7 fL (80.0-100.0); Monocytes # (A) 0.5 k/uL (0-1.0); Monocytes % (A) 4 %; Neutrophils # (A) 7.9 k/uL (1.3-7.7); Neutrophils % (A) 68 %; Platelet Count 226 k/uL (150-450); RBC 4.07 m/uL (3.80-5.40); RDW 12.5 % (11.5-15.5); WBC 11.7 k/uL (3.8-10.6)
[2022-04-14 19:32] LABS: ALT 44 U/L (4-34); AST 37 U/L (14-36); African American GFR (CKD) >90 (>60 ml/min/1.73 sqM); Albumin 4.5 g/dL (3.5-5.0); Alkaline Phosphatase 88 U/L (38-126); Anion Gap 8 mmol/L; Blood Urea Nitrogen 23 mg/dL (7-17); Calcium 10.1 mg/dL (8.4-10.2); Carbon Dioxide 24 mmol/L (22-30); Chloride 108 mmol/L (98-107); Glucose 145 mg/dL (74-99); Non-African American GFR(CKD) >90 (>60 ml/min/1.73 sqM); Partial Thromboplastin Time 25.4 sec (22.0-30.0); Potassium 4.6 mmol/L (3.5-5.1); Prothrombin Time 10.2 sec (9.0-12.0); Sodium 140 mmol/L (137-145); Total Bilirubin 0.2 mg/dL (0.2-1.3); Total Protein 7.3 g/dL (6.3-8.2)
[2022-04-14 19:43] VITALS: BP 134/78; PULSE 82; RESP 20
--- NOTE | 2022-04-14 19:53 | XR ---
EXAMINATION TYPE: XR chest 2V DATE OF EXAM: 04/14/2022 COMPARISON: 10/22/2017 HISTORY: Short of breath TECHNIQUE: 2 views FINDINGS: Heart and mediastinum are normal. Lungs are clear. Diaphragm is normal. Bony thorax is inta ct. IMPRESSION: Normal chest. No change.
[2022-04-14] MEDS ORDERED: FUROSEMIDE 40 MG TAB PO STA (20:16)
== END 2022-04-14 21:02 | disposition home or self-care (01) ==
LOC: EC 16:49
DX: R60.0 Localized edema (principal); E11.9 Type 2 diabetes mellitus without complications; K21.9 Gastro-esophageal reflux disease without esophagitis; E78.5 Hyperlipidemia, unspecified; F32.A Depression, unspecified; F41.9 Anxiety disorder, unspecified; F17.200 Nicotine dependence, unspecified, uncomplicated; Z79.899 Other long term (current) drug therapy
CPT/HCPCS: 36415; 93005; 83880; 80053; 83605; 85025; 85610; 85730; 71046; 99284; 96374; J1940

== ENCOUNTER → 2022-05-02 | Outpatient (CLI) | payer MEDICARE, OTHER ==
[2022-05-02 09:25] VITALS: BP 149/90; PULSE 76; RESP 16; TEMP 98.4
--- NOTE | 2022-05-02 15:03 | P.PAINPG ---
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 Pt states pain level is at 10 /10 in intensity, intermittent, localized in the lower cervical spine, sharp in character w shooting pain towards the BL shoulders. Pain is provoked by looking straight, hyperextension, rotation, lateral flexion. Pain is alleviated by PT x 6 wks in Apr 2022, home exercise regimen, medications (Neurontin, [place]), repostioning and rest. PMH: DM II, Fibromyalgia, GERD, Hyperlipidemia, Hypothyroidism, MDD/ Anxiety Additional Family Medical History / Comment(s): depression PSH: Vocal Cord Surgery, C3-C7 Hardware Placement, Section, L Cataract Resection SH: Daily tobacco use, No ETOH abuse, No illicit drug use. FH: Mo- COPD/ Dementia All: NKDA Meds: See list REVIEW OF ORGAN SYSTEMS: CONSTITUTIONAL: No fevers or chills. No recent weight loss. NEUROLOGICAL: + numbness and tingling along the distal extremities. No seizure disorders or headaches. MUSCULOSKELETAL: + pain PSYCHIATRIC: Denies current depression or suicidal thoughts. Physical Examinations : Constitutional : Cooperative , not in acute distress . Neurologic : Cranial nerve II to XII intact. No focal neurological deficits. Psychiatric : alert & oriented x 3. Matching mood & appropriate affect. Judgment & insight intact. Musculoskeletal : Cervical Spine Motor strength in the deltoid and biceps: Normal right side. Normal Left side Motor strength biceps and the wrist extensors: Normal right side . Normal left side Motor strength in the triceps muscle: Normal right side. Normal left side Deep tendon reflexes: Normal at the biceps. Normal at Brachioradialis. Normal at triceps Vertebral body tenderness to deep palpation over L C4, C5, C6, C7 Cervical facet loading test: positive bilaterally Spurling test: positive bilaterally Neck distraction test: positive bilaterally Nathanael sign: positive bilaterally Lumbar spine Motor strength lower extremities ,thigh and legs 5/5 Right side , 5/5 Left side Deep tendon reflexes : Normal Knee Jerk. Normal Ankle Jerk Vertebral body tenderness over Lumbar facet Loading Test: positive Right / positive Left Range of motion of the lumbar spine Flexion 30 degrees, extension 10 degrees Straight Leg Raise test: Left/ Right positive at degree Bean test: positive right / positive left. Severe tenderness over the Sacroiliac joint on the Right / Left sides Gaenslen test: positive bilaterally Seated flexion test: positive bilaterally. Sacral spine : Severe tenderness over the Sacroiliac joint: right side / left side Range of motion: Flexion of the lumbar spine <60 degrees Range of motion: Extension of the lumbar spine <20 degrees Gaenslen's Test positive David's Test positive Bean test: positive right side / left side Thigh Thrust Test Sacral Thrust Test Imaging: MRI of the cervical spine from [facility] requested Assessment/ Plan : Cervical DDD To obtaining imaging. Will follow up within 2-4 wks for a re evaluation. Risks, benefits of procedure discussed and patient verbalized understanding. Denies aspirin or anti- coagulant use or medical history of diabetes. Protocol for discontinuation/ continuation of medications enzo procedure discussed. All questions answered. I have spent greater than 30 minutes on patient care today. Dr Coffey was available by phone for the evaluation of this patient. The time was used to review the medical records including relevant urine studies and Prescription history (MAPs), review of the available imaging, evaluation and examination of the patient, coordination of care with the medical staff and if applicable referring physicians, as well as creation of the medical record PQRS Narrative: Smoking Status Current every day smoker Home Medications: Ambulatory Orders Budesonide-Formot 160-4.5 Mcg [Symbicort 160-4.5 Mcg Inhaler] 2 puff INHALATION RT-BID 02/15/14 Cholecalciferol [Vitamin D3] 2,000 units PO DAILY 02/15/14 Gabapentin 800 mg PO TID 02/15/14 Hydrocodone/Acetaminophen [Hydrocodone/Acetaminophen 10-325] 10 mg PO DAILY PRN 02/15/14 [place] Carbonate 300 mg PO TID 02/15/14 Pantoprazole Sodium 40 mg PO DAILY 02/15/14 Fenofibrate Nanocrystallized [Fenofibrate] 145 mg PO DAILY 01/29/17 Ferrous Sulfate [Feosol] 325 mg PO QID 01/29/17 Levothyroxine Sodium [Synthroid] 50 mcg PO DAILY 01/29/17 QUEtiapine [SEROquel] 200 mg PO HS 01/29/17 ARIPiprazole [Abilify] 2 mg PO DAILY 10/22/17 Ascorbic Acid [Vitamin C] 500 mg PO DAILY 07/10/18 Cyclobenzaprine [Flexeril] 10 mg PO TID PRN #15 tablet 10/22/17 Fluticasone Nasal [place] [Flonase Nasal [place]] 1 spray EA NOSTRIL BID 10/22/17 buPROPion HCL [Wellbutrin XL] 300 mg PO DAILY 10/22/17 lamoTRIgine [LaMICtal] 100 mg PO QAM 10/22/17 lamoTRIgine [LaMICtal] 200 mg PO HS 10/22/17 lisinopriL [Prinivil] 10 mg PO DAILY 10/22/17 Cyclobenzaprine [Flexeril] 10 mg PO TID PRN #15 tab 05/23/19 Controlled Substance Measures - Controlled Substance Measures Is patient prescribed a controlled substance at discharge?: No
== END ==
LOC: PNWHC3 07:43
PROVIDERS: ATTEND Specialist
DX: M50.30 Other cervical disc degeneration, unspecified cervical region (principal); E11.9 Type 2 diabetes mellitus without complications; K21.9 Gastro-esophageal reflux disease without esophagitis; E78.5 Hyperlipidemia, unspecified; E03.9 Hypothyroidism, unspecified; F41.9 Anxiety disorder, unspecified; F32.A Depression, unspecified; F17.200 Nicotine dependence, unspecified, uncomplicated; Z79.890 Hormone replacement therapy; Z79.84 Long term (current) use of oral hypoglycemic drugs
CPT/HCPCS: 99211

== ENCOUNTER 2022-06-26 06:50 | Day surgery (SDC) | payer MEDICARE, OTHER ==
[2022-06-26 07:48] LABS: Glucose,Whole Blood 261 mg/dL (70-110)
[2022-06-26 07:51] VITALS: TEMP 97
[2022-06-26] MEDS ORDERED: MIDAZOLAM 2 MG/2 ML VIAL ONE (07:59)
[2022-06-26] MEDS ORDERED: IOPAMIDOL M200 10 ML VIAL ONE (07:59)
[2022-06-26] MEDS ORDERED: DEXAMETHASONE SOD PHOSPHATE 10 MG/ML 1 ML VIAL ONE (07:59)
[2022-06-26] MEDS ORDERED: LACTATED RINGERS 1,000 ML IV ONE (08:11)
--- NOTE | 2022-06-26 08:18 | P.PCN ---
Date of Procedure: 06/26/22 Procedure(s) Performed: PREOPERATIVE DIAGNOSIS: 1-cervical radiculopathy . 2-cervical degenerative disc disease. POSTOPERATIVE DIAGNOSIS: Same as preoperative diagnoses. PROCEDURE 1. Transforaminal epidural steroid injection under fluoroscopic guidance at left C7-T1 level. (Fluoroscopy images stored on file in the radiology Department ) 2. Lumbar epidurogram . ANESTHESIA: Local with 1% lidocaine 3 ml , moderate sedation with intravenous V ersed 1 mg . Sedation start time : 801 . Sedation. stop time : 810 . EBL: Minimal PROCEDURE INDICATION: The patient with low back pain and radiculopathy symptoms unresponsive to conservative treatment. PROCEDURE DESCRIPTION / TECHNIQUE: The patient was seen and identified in the preoperative area. Risks, benefits, complications, and alternatives were discussed with the patient. The patient agreed to proceed with the procedure and signed the consent. IV was started, and vital signs were stable. Patient was taken to the OR and time out was completed. The patient was placed in the lateral position on procedure table( left side up ) The cervical area was prepped and draped in the usual sterile fashion. Critical pause was taken. Vital signs were closely monitored during the procedure. Conscious sedation was used during the procedure to decrease patient s anxiety. Using oblique fluoroscopy, the chin of the foramina of c7 T1 level was identified, and the skin and deeper tissues just below was localized with 1% lidocaine. Subsequently, a 22-gauge 3.5-inch spinal needle was advanced under a tunneled view fluoroscopic guidance just throught the left C7-T1 foramina Under lateral fluoroscopy, the needle was then advanced to the posterior border of the interforaminal space. After negative aspiration of CSF and blood and with no paresthesias, 1 mL Isovue 200 contrast dye was injected to confirm the needle placement, Subsequently, 1 mL of block solution containing 10 mg of Dexamethasone was injected. Needle was removed, skin was cleansed, and bandages were applied. COMPLICATIONS:none DISPOSITION / PLANS: The patient was placed in a supine position and transferred to the recovery area in a stable condition for observation. There was no evidence of lower extremity motor or sensory deficit after the procedure. Patient was discharged from the recovery room after meeting discharge criteria. Home discharge instructions were given to the patient by the staff. The patient was reexamined prior to discharge.
[2022-06-26] MEDS ORDERED: IV FLUID CONTINUATION 700 ML IV ONE (08:20)
[2022-06-26 08:30] LABS: Glucose,Whole Blood 270 mg/dL (70-110)
[2022-06-26 08:46] VITALS: BP 147/84; PULSE 79; RESP 18
--- NOTE | 2022-06-26 09:27 | FL ---
Intraoperative/procedural fluoroscopic services were provided for left transforaminal epidural inject ion. Total fluoroscopy time is 14 seconds with a total of 1 submitted images to PACS. Total DAP 0.03 159 mGym2. Please see the operative note for further details.
== END 2022-06-26 08:59 ==
LOC: ORPAIN 06:50
PROVIDERS: ATTEND Specialist
DX: M50.13 Cervical disc disorder with radiculopathy, cervicothoracic region (principal); Z88.6 Allergy status to analgesic agent
CPT/HCPCS: 64479; J2250; J1100; Q9966; 64483

== ENCOUNTER → 2022-07-18 | Outpatient (CLI) | payer MEDICARE, OTHER ==
--- NOTE | 2022-07-18 12:02 | P.PN ---
Subjective Progress Note Date: 07/18/22 This is a 52-year-old lady with history of chronic neck pain with radiation to the left shoulder and arm down to the left hand with numbness and tingling in no specific radicular distribution. The patient had anterior cervical fusion in 2010 . She does feel some weakness in the left arm. She had transforaminal epidural steroid injection at the C7-T1 level on the left side which did not give her good pain relief that she states. Patient denies new-onset weakness, bowel/bladder incontinence, or any other signs or symptoms of cauda equina syndrome. There are no signs of acute intoxication, and no indications of medication diversion or overuse. In addition to above, 13-point review of systems is also negative for chest pain, shortness of breath, changes in vision, changes in hearing, new onset weakness, abdominal pain, diarrhea, extreme fatigue, malaise, fever, skin changes, homicidal or suicidal ideation, or bowel or bladder incontinence. Vital Signs: Reviewed in EMR Gen: AAOx3, NAD HEENT: PERRLA,hearing grossly normal Pulm: resp unlabored Neck: supple, trachea midline Neuro exam of the upper extremities: Decreased left elbow flexion and extension to 4 out of 5 Straight leg raising test: David's test: Range of motion of the cervical spine: Decreased especially to left rotation Facet loading test: Tenderness in the paravertebral musculature: Positive tenderness on the left side of the cervical spine Neuro: CN II-XII grossly intact, Imaging: Reviewed in EMR/chart Assessment: Cervical spondylosis without myelopathy due to facet arthropathy Cervical neuroforaminal stenosis at the C3-C4 level Post anterior cervical fusion in 2010 Plan: 1. Explanation: When patients on opioids, opioid and psychological risk scores were reviewed. Diagnoses, prognoses, and multiple treatment options including but not limited to physical therapy, interventional therapies, adjuvant medical therapies, narcotic medication therapies, and surgery were discussed with the patient and all questions were answered to the patient's satisfaction. 2. Opioid agreement:When patients are prescribed opoids through our clinic, opioid agreement is signed with the patient and the patient is warned not to use opioids while driving or before driving and not to combine opioids with benzodiazepines or alcohol. 3. Counseling: When patient is smoking or obese, the patient was counseled extensively on SMOKING CESSATION, BODY MASS INDEX, EXERCISE. Specifically, the patient was instructed regarding the importance of smoking cessation, obesity, and exercise in the context of both chronic pain and overall health. 4. Procedures: The patient may benefit from two types of procedures; cervical epidural steroid injection in the interlaminar approach at the C7-T1 level and a diagnostic cervical medial branch block at the C2-C3 and C4 levels on the left side. Due to the patient's history of diabetes she prefers to avoid steroids and that's why at this point we are going to schedule her for a left cervical medial branch block for C2, C3, and C4 levels on the left side under fluoroscopic guidance. 5. Consultations: None 6. Investigations: None 7. Medications: None prescribed 8. Disposition: Proceed with the above-mentioned procedure as soon as possible 9. Maps were reviewed and were appropriate. PQRS measures: 1-Patient's medications are documented in the chart. 2-Tobacco use is negative, counseling given 3-Patient has had a pneumococcal vaccine. 4-Advanced care planning discussed, patient unable to give 5-Opioid contract signed with the patient. 6-Pain positive, follow-up visit or procedure scheduled 7-Patient's blood pressure measured and documented . The patient will follow up with his primary care physician. 8-Patient's weight was measured. Patient instructed to follow up with PCP. 9-Patient WAS NOT identified as an unhealthy alcohol user.
[2022-07-18 12:28] VITALS: BP 144/65; PULSE 81; RESP 18
== END ==
LOC: PNWHC3 11:14
PROVIDERS: ATTEND Anesthesiology
DX: M47.812 Spondylosis without myelopathy or radiculopathy, cervical region (principal); M48.02 Spinal stenosis, cervical region; Z98.1 Arthrodesis status; Z88.5 Allergy status to narcotic agent; F17.200 Nicotine dependence, unspecified, uncomplicated
CPT/HCPCS: 99211

== ENCOUNTER 2022-08-14 07:36 | Day surgery (SDC) | payer MEDICARE, OTHER ==
[2022-08-10 09:24] VITALS: BMI 31.1
[~2022-08-14 07:36] MED LIST: LACTATED RINGERS 1,000 ML IV SCH
[2022-08-14 08:05] VITALS: TEMP 96.8
[2022-08-14 08:07] LABS: Glucose,Whole Blood 188 mg/dL (70-110)
[2022-08-14] MEDS ORDERED: ROPIVACAINE 5 MG/ML 20 ML AMPULE ONE (08:13)
[2022-08-14] MEDS ORDERED: MIDAZOLAM 2 MG/2 ML VIAL ONE (08:13)
--- NOTE | 2022-08-14 08:21 | P.PCN ---
Date of Procedure: 08/14/22 Operative Findings: Procedure: Cervical Medial Branch Block at left C2 3, C3 4 Indications: Neck Pain Diagnosis: Cervical spondylosis without myelopathy Imaging: Fluoroscopy was used, images where saved to the medical record Anesthesia: Moderate sedation per nurse. Anesthesia supervision time between [id number] Description of procedure: The patient was seen and examined in the PO. Procedure risks and benefits were fully reviewed with patient. The patient understands this is a diagnostic as well as a therapeutic procedure and that the goal of the procedure is to inject medication on to the medial branch or small nerves that go into the facet joints. In this way, we can hopefully identify which of these joints, if any, may be contributing to their pain. Informed consent for the procedure was obtained. The patient was taken into the office fluoroscopy procedure room and placed supine on the table. Vital signs were closely monitored during the procedure. The skin over the area was prepped with chlorhexidine and draped in usual sterile manner. Sterile technique was observed throughout procedure. Under fluoroscopic guidance, the target injection areas of the the above noted level's medial branches were visualized in lateral views. Using biplanar fluoroscopy, a 25 gauge 3.5 inch needle was inserted into proper position where the tip of the needle was located at the midpoint of the quadrangle at each level. After negative aspiration for blood and CSF, 0.5cc of 0.5 % Ropivacaine was injected into each of the targeted areas. The needles were withdrawn intact. No complications were noted during the procedure. The patient tolerated procedure well. The patient was placed in supine position and transferred to the recovery area for observation and remained stable until discharged home. Home discharge instructions given to the patient by the staff. The patient was reexamined prior to discharge. Follow up/plan: The patient will schedule a follow up in the clinic to discuss results and potential RFA.
[2022-08-14] MEDS ORDERED: LACTATED RINGERS 1,000 ML IV ONE (08:25)
--- NOTE | 2022-08-14 08:31 | FL ---
EXAMINATION TYPE: FL guided pain mgmt statistic DATE OF EXAM: 08/14/2022 HISTORY: Fluoroscopy time Total dose area product (DAP) mGy*cm? (or similar): 0.75355 IMPRESSION: 1. Fluoroscopy time.
[2022-08-14 08:43] LABS: Glucose,Whole Blood 174 mg/dL (70-110)
[2022-08-14 08:45] VITALS: BP 143/84; PULSE 84; RESP 17
== END 2022-08-14 09:16 | disposition home or self-care (01) ==
LOC: ORPAIN 07:36
PROVIDERS: ATTEND Hospitalist
DX: M47.812 Spondylosis without myelopathy or radiculopathy, cervical region (principal); Z88.5 Allergy status to narcotic agent
CPT/HCPCS: 64490; 64491; J2250; J2795

== ENCOUNTER → 2022-09-05 | Outpatient (CLI) | payer MEDICARE, OTHER ==
[2022-09-05 11:39] VITALS: BP 146/85; PULSE 79; RESP 18; TEMP 98.2
--- NOTE | 2022-09-05 13:47 | P.PAINPG ---
PQRS Measure Charge Sheet Comment: A 52 yr old female w at side with a history of severe and chronic neck pain secondary to cervical DDD and spondylosis with facet arthropathy without myelopathy presents today for evaluation s/p L MBB C2-C3, C3-C4 #1. Pt states she experienced 80% x 4 hrs s/p procedure. Pain level is provoked at 5 /10 in intensity, constant, localized in the cervical spine, achy in character w shooting towards the LUE. Pain is provoked by lifting. Pain is alleviated with PT x 6 wks in Apr 2022, heat, ice, medications ([place], Baclofen, Aleve), repositioning and rest. Interventional pain procedures completed include L MBB C2-4 x1 Patient is currently on [place], Baclofen, Aleve Patient denies any side effects of the medication(s), denies excessive drowsiness or sleepiness, denies suicidal ideation and reports that the current pain medication is helping to control the pain and improve activities of daily living. Patient denies any motor or sensory deficits. Patient denies any fever or night sweats, denies any change in the bowel movements or urination. Physical Examination: -Constitutional: Cooperative. Not in acute distress . - Neurologic: Cranial nerve II to XII intact. No focal neurological deficits. - Psychatric: Alert & oriented x 3. Matching mood & appropriate affect. Judgment and insight intact. - Musculoskeletal: Cervical spine: Muscle bulk/ tone/ strength in the bilateral upper extremities normal Vertebral body tenderness to palpation over Spurling test positive Distraction test positive Facet loading test positive TTP on L C2-c3, C3-C4 Thoracic spine Muscle bulk / tone/ strength in the bilateral paraspinal muscles normal Vertebral body tender to palpation over Facet loading test positive TTP Lumbar spine: Motor bulk/ tone/ strength lower extremities , thigh and legs : 5/5 Deep tendon reflexes : Normal Knee Jerk. Normal Ankle Jerk . Vertebral body tenderness to palpation over Lumbar Facet Loading Test positive Straight Leg Raise: positive at 30 degrees right side/ left side Gaenslen's Test positive Sacral spine : Severe tenderness over the Sacroiliac joint: right side / left side Range of motion: Flexion of the lumbar spine <60 degrees Range of motion: Extension of the lumbar spine <20 degrees Gaenslen's Test positive R / L Bean test: positive right side / left side Thigh Thrust Test positive R / L Sacral Thrust Test positive R/ L Assessment and plan: Chronic neck pain secondary to cervical DDD, spondylosis with facet arthropathy without myelopathy Recommendation of L MBB C2-C3, C3-C4 #2. May need a series of injections for optimal pain relief. Risks, benefits of procedure discussed and pt verbalized understanding. Admits to anticoagulant use or medical history of diabetes. Protocol for discontinuation/ continuation of medications enzo procedure discussed. Minimal anesthesia provided, if clinically indicated, consisting of Versed and Fentanyl. All questions answered. I have spent less than 30 minutes on patient care today. Dr Coffey was available by phone for the evaluation of this patient. The time was used to review the medical records including relevant urine studies and Prescription history (MAPs), review of the available imaging, evaluation and examination of the patient, coordination of care with the medical staff and if applicable referring physicians, as well as creation of the medical record PQRS Narrative: Smoking Status Current every day smoker Home Medications: Ambulatory Orders Cholecalciferol [Vitamin D3] 2,000 units PO DAILY 02/15/14 Gabapentin 800 mg PO TID 02/15/14 Pantoprazole Sodium 40 mg PO DAILY 02/15/14 Fenofibrate Nanocrystallized [Fenofibrate] 145 mg PO DAILY 01/29/17 Ferrous Sulfate [Feosol] 325 mg PO BID 01/29/17 Levothyroxine Sodium [Synthroid] 75 mcg PO DAILY 01/29/17 QUEtiapine [SEROquel] 300 mg PO HS 01/29/17 Fluticasone Nasal [place] [Flonase Nasal [place]] 1 spray EA NOSTRIL BID 10/22/17 Atorvastatin [Lipitor] 10 mg PO DAILY 05/02/22 Fluticasone/Umeclidin/Vilanter [Trelegy Ellipta 100-62.5-25] 1 inhalation INHALATION HS 05/02/22 Folic Acid 1 mg PO DAILY 05/02/22 HYDROcodone/APAP 7.5-325MG [[place] 7.5-325] 1 tab PO Q6HR PRN 05/02/22 Insulin Glargine,Hum.rec.anlog [Lantus Solostar Pen] 40 units SQ HS 05/02/22 Montelukast [Singulair] 10 mg PO DAILY 05/02/22 Mv,Calcium,Min/Iron/Folic/Vitk [One-A-Day Women's Complete Tab] 1 each PO DAILY 05/02/22 OLANZapine 15 mg PO DAILY 05/02/22 lamoTRIgine [lamoTRIgine ER] 300 mg PO BID 05/02/22 Desvenlafaxine Succinate [Desvenlafaxine Succinate ER] 25 mg PO DAILY 08/10/22 INSULIN LISPRO (HumaLOG) [humaLOG] See Protocol SQ ACHS 08/10/22 Tirzepatide [Mounjaro] 5 mg SQ Q7D 08/10/22 Controlled Substance Measures - Controlled Substance Measures Is patient prescribed a controlled substance at discharge?: No
== END ==
LOC: PNWHC3 09:00
PROVIDERS: ATTEND Specialist
DX: M50.30 Other cervical disc degeneration, unspecified cervical region (principal); M47.812 Spondylosis without myelopathy or radiculopathy, cervical region; G89.29 Other chronic pain; F17.200 Nicotine dependence, unspecified, uncomplicated; Z88.5 Allergy status to narcotic agent
CPT/HCPCS: 99211

== ENCOUNTER → 2022-09-13 | Outpatient (CLI) | payer MEDICARE, OTHER ==
--- NOTE | 2022-09-14 11:32 | MR ---
EXAMINATION TYPE: MR lumbar spine wo con DATE OF EXAM: 09/13/2022 5:33 PM COMPARISON: CT 10/22/2017. CLINICAL INDICATION:Female, 52 years old with history of M54.16 RADICULOPATHY, LUMBAR REGION Low back pain TECHNIQUE: Multi planar, multi sequence imaging was performed utilizing: T1-weighted, T2-weighted, a nd turbo inversion recovery imaging of the lumbar spine. IV Contrast: None. FINDINGS: Alignment: The lumbar vertebral bodies have preserved heights and alignment. Cord: The conus medullaris and the distal spinal cord appear unremarkable with regards to their signa l intensity and morphology. Bones/Discs: Modic endplate changes of the adjoining endplates most pronounced anteriorly along the a nterior superior vertebral bodies. High T1/T2 signal L2 vertebral body probable hemangioma versus foc al fat.. No abnormal bony edema on inversion recovery sequences. Mild disc degenerative is noted and most pronounced at the L2-L4. Intervertebral disc signal is maintained. T12-L1: No evidence of significant spinal canal stenosis or neural foraminal stenosis. L1-L2: No evidence of significant spinal canal stenosis or neural foraminal stenosis. L2-L3: No evidence of significant spinal canal stenosis or neural foraminal stenosis. L3-L4: No evidence of significant spinal canal stenosis or neural foraminal stenosis. L4-L5: No evidence of significant spinal canal stenosis or neural foraminal stenosis. L5-S1: The disc is rounded posterior morphology without significant spinal canal stenosis. Facet join t arthropathy with mild neural foraminal stenosis. No significant spinal canal or neural foraminal stenosis in the remainder of the visualized levels. Other findings: None. IMPRESSION: 1. No definitive evidence of disc herniation or significant spinal canal stenosis. 2. Minimal disc degeneration with associated osteoarthritic changes.
== END | disposition home or self-care (01) ==
LOC: RADMRIMAIN 16:35
PROVIDERS: ATTEND Physician Assistant
DX: M51.16 Intervertebral disc disorders with radiculopathy, lumbar region (principal); M47.26 Other spondylosis with radiculopathy, lumbar region
CPT/HCPCS: 72148

== ENCOUNTER 2022-10-05 07:21 | Day surgery (SDC) | payer MEDICARE, OTHER ==
[~2022-10-05 07:21] MED LIST changes: +LIDOCAINE 1% (10MG/ML) FOR IV START INTRADERMA PRN
[2022-10-05 07:36] VITALS: TEMP 98.3
[2022-10-05 07:53] LABS: Glucose,Whole Blood 165 mg/dL (70-110)
[2022-10-05] MEDS ORDERED: MIDAZOLAM 2 MG/2 ML VIAL ONE (08:26)
[2022-10-05] MEDS ORDERED: fentaNYL (PF) 50 MCG/ML 2 ML AMP ONE (08:26)
[2022-10-05] MEDS ORDERED: ROPIVACAINE 5 MG/ML 20 ML AMPULE ONE (08:26)
[2022-10-05] MEDS ORDERED: methylPREDNISolone ACETATE 40 MG/ML 1 ML VIAL ONE (08:26)
--- NOTE | 2022-10-05 08:47 | P.PCN ---
Date of Procedure: 10/05/22 Procedure(s) Performed: PREOPERATIVE DIAGNOSIS: 1-Cervical Spondylosis with Facet Arthropathy.without myelopathy. 2-cervical degenerative disc disease POSTOPERATIVE DIAGNOSIS:1-cervical spondylosis with facet arthropathy without myelopathy. 2-cervical degenerative disc disease PROCEDURES: Diagnostic Left C2 ,C3, C4 medial branch blocks, with fluoroscopic guidance (fluoroscopy images available in radiology department ) ( to target the facet joint at Left C2-3 ,C3-4 ) ANESTHESIA: Monitored anesthesia care as per anesthesia department . EBL: Minimal PROCEDURE INDICATION: The patient with neck pain secondary to cervical arthropathy unresponsive to more conservative treatments. PROCEDURE DESCRIPTION / TECHNIQUE: The patient was seen and identified in the preoperative area. Risks, benefits, complications, and alternatives were disc ussed with the patient, the patient agreed to proceed with the procedure and signed the consent. IV was started. Vital signs remained stable throughout the procedure. Patient was taken to the OR and time out was completed. The patient was placed in the lateral position on the procedure table ( left side up ).. The cervical area was prepped and draped in the usual sterile fashion. Critical pause was taken. Vital signs were closely monitored during the procedure. Conscious sedation was used during the procedure to decrease patients anxiety. Using cross-table lateral fluoroscopy, the centroid of the trapezoid of Left C2 ,C3, C4 was identified, marked, and localized with 1% lidocaine 1 ml at each level for skin and Sub Q infiltrations . Subsequently, a 22 G 3 spinal needle was advanced guided by fluoroscopy to the centroid of the trapezoid of Left C2 , C3, C4 ,. Parker tip position was confirmed at the centroid of the trapezoids of Left C2, C3 , C4 , with anteroposterior fluoroscopy. Subsequently, 2 ml of preservative-free Ropivacaine 0.5% mixed with Depo- Medrol 20 mg and half ml of the mixture was injected after negative aspiration for blood and CSF. Parker was then removed intact . COMPLICATIONS: No acute complications. DISPOSITION / PLANS: The patient was placed in a supine position and transferred to the recovery area in a stable condition for observation and was discharged from the recovery room after meeting discharge criteria. Home discharge instructions given to the patient by the staff. The patient was reexamined prior to discharge. The patient will schedule a follow up in the clinic in 2-4 weeks.
--- NOTE | 2022-10-05 08:53 | FL ---
EXAMINATION TYPE: FL guided pain mgmt statistic DATE OF EXAM: 10/05/2022 HISTORY: Fluoroscopy time Total dose area product (DAP) in uGy*m?, mGy*cm? (or similar): 0.74047 IMPRESSION: 1. Fluoroscopy time.
[2022-10-05] MEDS ORDERED: IV FLUID CONTINUATION 650 ML IV ONE (08:56)
[2022-10-05 09:06] VITALS: BP 149/81; PULSE 80; RESP 18
== END 2022-10-05 09:19 | disposition home or self-care (01) ==
LOC: ORPAIN 07:21
PROVIDERS: ATTEND Specialist
DX: M50.30 Other cervical disc degeneration, unspecified cervical region (principal); M47.812 Spondylosis without myelopathy or radiculopathy, cervical region; J44.9 Chronic obstructive pulmonary disease, unspecified; F17.210 Nicotine dependence, cigarettes, uncomplicated; E11.9 Type 2 diabetes mellitus without complications; K21.9 Gastro-esophageal reflux disease without esophagitis; Z79.51 Long term (current) use of inhaled steroids; Z79.84 Long term (current) use of oral hypoglycemic drugs; Z79.899 Other long term (current) drug therapy; Z88.5 Allergy status to narcotic agent
CPT/HCPCS: 64490; 64491; J2250; J1030; J3010; J2795

== ENCOUNTER → 2022-10-24 | Outpatient (CLI) | payer MEDICARE, OTHER ==
--- NOTE | 2022-10-25 20:18 | MM ---
Reason for Exam: Screening (asymptomatic). Last mammogram was performed 5 year(s) and 10 month(s) ago. Patient History: Menarche at age 7. First Full-Term at age 15. Postmenopausal. Risk Values: Mary 5 year model risk: 0.9%. NCI Lifetime model risk: 6.8%. Prior Study Comparison: 05/05/2013 Bilateral Screening Mammogram, [facility]. 07/26/2015 Bilateral Screening Mammogram, [facility]. 01/07/2017 Bilateral Screening Mammogram, [facility]. Tissue Density: The breast tissue is heterogeneously dense. This may lower the sensitivity of mammography. Findings: Analyzed By CAD. Unchanged subareolar nodularity on the left. There is no suspicious group of microcalcifications or new suspicious mass in either breast. Overall Assessment: Benign, BI-RAD 2 Management: Screening Mammogram of both breasts in 1 year. . Patient should continue monthly self-breast exams. A clinical breast exam by your physician is recommended on an annual basis. This exam should not preclude additional follow-up of suspicious palpable abnormalities. Note on Mary scores and lifetime risk: 1. A Mary score greater than 3% is considered moderate risk. If this is the case, consider specialist referral to assess eligibility for a risk reducing agent. 2. If overall lifetime risk for the development of breast cancer is 20% or higher, the patient may qualify for future screening with alternating mammogram and breast MRI. Electronically signed and approved by: Nasir Paris M.D. Radiologist
== END | disposition home or self-care (01) ==
LOC: RADMAMWWP 13:05
PROVIDERS: ATTEND Family Medicine
DX: Z12.31 Encounter for screening mammogram for malignant neoplasm of breast (principal); Z78.0 Asymptomatic menopausal state
CPT/HCPCS: 77063; 77067

== ENCOUNTER → 2022-11-28 | Outpatient (CLI) | payer MEDICARE, OTHER ==
[2022-11-28 13:09] VITALS: BP 127/78; PULSE 86; RESP 16; TEMP 98
--- NOTE | 2022-11-28 14:43 | P.PAINPG ---
PQRS Measure Charge Sheet Comment: A 52 yr old female w and child at side with a history of severe and chronic neck pain secondary to cervical DDD and spondylosis with facet arthropathy without myelopathy presents today for evaluation s/p L MBB C2-C3, C3-C4 #2. Pt states she experienced 100 % x 8 hrs s/p procedure. Pain level is provoked at 6 /10 in intensity, constant, localized in the cervical spine, achy in character w shooting towards the LUE. Pain is provoked by lifting, hyperextension. Pain is alleviated with PT x 6 wks in Apr 2022, heat, ice, medications (Rowena, Baclofen, Aleve), repositioning and rest. Oswestry axial pain score of 29. Interventional pain procedures completed include L MBB C2-4 x2 Patient is currently on Rowena, Baclofen, Aleve Patient denies any side effects of the medication(s), denies excessive drowsiness or sleepiness, denies suicidal ideation and reports that the current pain medication is helping to control the pain and improve activities of daily living. Patient denies any motor or sensory deficits. Patient denies any fever or night sweats, denies any change in the bowel movements or urination. Physical Examination: -Constitutional: Cooperative. Not in acute distress . - Neurologic: Cranial nerve II to XII intact. No focal neurological deficits. - Psychatric: Alert & oriented x 3. Matching mood & appropriate affect. Judgment and insight intact. - Musculoskeletal: Cervical spine: Muscle bulk/ tone/ strength in the bilateral upper extremities normal Vertebral body tenderness to palpation over Spurling test positive Distraction test positive Facet loading test positive TTP on L C2-C3, C3-C4 Thoracic spine Muscle bulk / tone/ strength in the bilateral paraspinal muscles normal Vertebral body tender to palpation over Facet loading test positive TTP Lumbar spine: Motor bulk/ tone/ strength lower extremities , thigh and legs : 5/5 Deep tendon reflexes : Normal Knee Jerk. Normal Ankle Jerk . Vertebral body tenderness to palpation over Lumbar Facet Loading Test positive Straight Leg Raise: positive at 30 degrees right side/ left side Gaenslen's Test positive Sacral spine : Severe tenderness over the Sacroiliac joint: right side / left side Range of motion: Flexion of the lumbar spine <60 degrees Range of motion: Extension of the lumbar spine <20 degrees Gaenslen's Test positive R / L Bean test: positive right side / left side Thigh Thrust Test positive R / L Sacral Thrust Test positive R/ L Assessment and plan: Chronic neck pain secondary to cervical DDD, spondylosis with facet arthropathy without myelopathy Recommendation of L RFA C2-C3, C3-C4. May need a series of injections for optimal pain relief. Risks, benefits of procedure discussed and pt verbalized understanding. Admits to anticoagulant use or medical history of diabetes. Protocol for discontinuation/ continuation of medications enzo procedure discussed. Minimal anesthesia provided, if clinically indicated, consisting of Versed and Fentanyl. All questions answered. I have spent less than 30 minutes on patient care today. Dr Coffey was available by phone for the evaluation of this patient. The time was used to review the medical records including relevant urine studies and Prescription history (MAPs), review of the available imaging, evaluation and examination of the patient, coordination of care with the medical staff and if applicable referring physicians, as well as creation of the medical record PQRS Narrative: Smoking Status Current every day smoker Hx Alcohol Use (MH) No Home Medications: Ambulatory Orders Gabapentin 800 mg PO TID 02/15/14 Pantoprazole Sodium 40 mg PO DAILY 02/15/14 Fenofibrate Nanocrystallized [Fenofibrate] 145 mg PO DAILY 01/29/17 Ferrous Sulfate [Iron (65 MG Elemental)] 325 mg PO BID 01/29/17 Fluticasone Nasal [place] [Flonase Nasal [place]] 1 spray EA NOSTRIL DAILY PRN 10/22/17 Atorvastatin [Lipitor] 10 mg PO DAILY 05/02/22 Fluticasone/Umeclidin/Vilanter [Trelegy Ellipta 100-62.5-25] 1 puff INHALATION RT-DAILY 05/02/22 Folic Acid 1 mg PO DAILY 05/02/22 Insulin Glargine,Hum.rec.anlog [Lantus Solostar Pen] 40 units SQ HS 05/02/22 Montelukast [Singulair] 10 mg PO DAILY 05/02/22 Mv,Calcium,Min/Iron/Folic/Vitk [One-A-Day Women's Complete Tab] 1 tab PO DAILY 05/02/22 Desvenlafaxine Succinate [Desvenlafaxine Succinate ER] 25 mg PO DAILY 08/10/22 INSULIN LISPRO (HumaLOG) [humaLOG] See Protocol SQ TID-W/MEALS PRN 08/10/22 Baclofen [Lioresal] 10 mg PO BID 10/30/22 Cholecalciferol [Vitamin D3 (25 Mcg = 1000 Iu)] 50 mcg PO DAILY 10/30/22 Famotidine 40 mg PO DAILY 10/30/22 HYDROcodone/APAP 5-325MG [Rowena 5-325] 1 tab PO BID PRN 10/30/22 Levothyroxine Sodium [Synthroid] 75 mcg PO DAILY 10/30/22 QUEtiapine FUMARATE [SEROquel] 300 mg PO HS 10/30/22 Tirzepatide [Mounjaro] 7.5 mg SQ TU 10/30/22 lamoTRIgine 50 mg PO BID 10/30/22 lamoTRIgine 200 mg PO BID 10/30/22 Albuterol Inhaler [Ventolin Hfa Inhaler] 1 - 2 puff INHALATION RT-Q6H PRN #1 each 11/02/22 Levofloxacin [Levaquin] 500 mg PO DAILY 7 Days #7 tab 11/02/22 Nicotine 21Mg/24Hr Patch [Habitrol] 1 patch TRANSDERM DAILY #3 patch 11/02/22 Controlled Substance Measures - Controlled Substance Measures Is patient prescribed a controlled substance at discharge?: No
== END ==
LOC: PNWHC3 12:42
PROVIDERS: ATTEND Specialist
DX: M50.320 Other cervical disc degeneration, mid-cervical region, unspecified level (principal); G89.29 Other chronic pain; M47.812 Spondylosis without myelopathy or radiculopathy, cervical region; F17.200 Nicotine dependence, unspecified, uncomplicated; Z88.5 Allergy status to narcotic agent
CPT/HCPCS: 99211

== ENCOUNTER 2022-12-21 07:53 | Day surgery (SDC) | payer MEDICARE, OTHER ==
[2022-12-21] MEDS ORDERED: LACTATED RINGERS 1,000 ML IV SCH (08:10)
[2022-12-21 08:17] VITALS: TEMP 97.7
[2022-12-21 08:29] LABS: Glucose,Whole Blood 151 mg/dL (70-110)
[2022-12-21] MEDS ORDERED: MIDAZOLAM 2 MG/2 ML VIAL ONE (08:32)
[2022-12-21] MEDS ORDERED: fentaNYL (PF) 50 MCG/ML 2 ML AMP ONE (08:32)
[2022-12-21] MEDS ORDERED: ROPIVACAINE 5MG/ML 20ML VIAL ONE (08:39)
[2022-12-21] MEDS ORDERED: methylPREDNISolone ACETATE 40 MG/ML 1 ML VIAL ONE (08:39)
[2022-12-21] MEDS ORDERED: IV FLUID CONTINUATION 650 ML IV ONE (08:56)
--- NOTE | 2022-12-21 08:58 | P.PCN ---
Date of Procedure: 12/21/22 Procedure(s) Performed: PREOPERATIVE DIAGNOSIS:1- Cervical spondylosis with Facet Arthropathy without myelopathy.2-cervical degenerative disc disease POSTOPERATIVE DIAGNOSIS:1- Cervical spondylosis with Facet Arthropathy without myelopathy.2-cervical degenerative disc disease PROCEDURES: Radiofrequency thermocoagulation Left C2 , C3, C4, medial branch with Fluroscopy [place](fluoroscopy was available in Radiology department ) (to denervate the facet joint at left C2-3 ,C3- 4 ) ANESTHESIA: Monitored anesthesia care as per anesthesia department . EBL: Minimal PROCEDURE INDICATION: The patient with neck pain secondary to cervical art hropathy who had more than 50% relief of her pain with previous diagnostic cervical medial branch block. PROCEDURE DESCRIPTION / TECHNIQUE: The patient was seen and identified in the preoperative area. Risks, benefits, complications, and alternatives were discussed with the patient, the patient agreed to proceed with the procedure and signed the consent. IV was started. Vital signs remained stable throughout the procedure. Patient was taken to the OR and time out was completed. The patient was placed in the lateral position on the procedure table( left side up ) . The cervical area was prepped and draped in the usual sterile fashion. Critical pause was taken. Vital signs were closely monitored during the procedure. Conscious sedation was used during the procedure to decrease patients anxiety. Using cross-table lateral fluoroscopy, the centroid of the trapezoid of left C2 , C3, C4, were identified, marked, and localized with 1% lidocaine. Subsequently, a 20 -mr radiofrequency cannula with a 10-mm active tip was advanced guided by fluoroscopy to the centroid of the trapezoid of left C2 ,C3, C4 . Needle tip position was confirmed at the centroid of the trapezoids of left C2 ,C3, C4, with anteroposterior fluoroscopy. Each site then underwent sensory testing at 50 Hz and 0 to 1 volt and motor testing at 2 Hz and 0 to 3 volt with local stimulation, but no radicular symptoms down the arm. Thereafter each sites underwent radiofrequency thermocoagulation at 80 degrees celsius for 90 seconds after injecting 0.5 ml of PF Ropivacaine 0.5 %. After thermocoagulation, 1 ml of the block solution containing Depo-Medrol 40 mg and 3 mL of preservative-free normal saline was injected at the left C2 ,C3, C4, levels after negative aspiration of CSF and blood and with no paresthesias. Cannulas were retracted while injecting lidocaine 1% until the needle is out. Skin was cleansed and bandages were applied. COMPLICATIONS: No acute complications. DISPOSITION / PLANS: The patient was placed in a supine position and transferred to the recovery area in a stable condition for observation and was discharged from the recovery room after meeting discharge criteria. Home dis charge instructions given to the patient by the staff. The patient was reexamined prior to discharge. The patient will schedule a follow up in the clinic in 2-4 weeks.
--- NOTE | 2022-12-21 09:04 | FL ---
Intraoperative/procedural fluoroscopic services were provided for left cervical RF. Total fluoroscopy time is 11.6 seconds with a total of 3 submitted images to PACS. Total DAP [id number] mGym2. Please se e the operative note for further details.
[2022-12-21 09:30] VITALS: BP 122/80; PULSE 90; RESP 20
== END 2022-12-21 09:28 | disposition home or self-care (01) ==
LOC: ORPAIN 07:53
PROVIDERS: ATTEND Specialist
DX: M47.812 Spondylosis without myelopathy or radiculopathy, cervical region (principal); M50.31 Other cervical disc degeneration, high cervical region; E78.5 Hyperlipidemia, unspecified; K21.9 Gastro-esophageal reflux disease without esophagitis; Z79.899 Other long term (current) drug therapy; Z88.5 Allergy status to narcotic agent
CPT/HCPCS: 64633; 64634; J2250; J1030; J3010; J2795

== ENCOUNTER → 2023-04-09 | Outpatient (CLI) | payer MEDICARE, OTHER ==
--- NOTE | 2023-04-09 15:23 | NM ---
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 Reduced field of view images of the lumbosacral spine and pelv is, as well as the chest/rib cage, were obtained in multiple projections. Followed by planar anterior and posterior whole body scintigraphic images. Images acquired 3 hours post injection. FINDINGS: The kidneys and bladder are seen, normal physiologic activity. There is relatively homogeneous uptake of radiotracer throughout the axial and appendicular skeleton, without focal uptake identified to ra ise concern for osseous metastases. There does appear to be mild asymmetric uptake associated with th e lateral left rib cage, which appears to extend longitudinally along the rib and seems to correspond to the left lateral seventh rib lesion of concern on prior imaging. There is mild uptake about the bilateral shoulders, sternoclavicular joints, elbows, wrists, dorsum o f the hands, spine, SI joints, knees, ankles, most compatible with degenerative arthritic changes. Note: The lesion of concern seen on prior imaging is a region of mild medullary expansion extending l ongitudinally through the rib at the lateral aspect of the left seventh rib, best demonstrated on CT. This shows mild thinning of the overlying cortex without evidence of cortical destruction, fracture, or aggressive periostitis. The lesion does not show clearly identified margins on CT. Given the appe arance of this lesion on CT and bone scan, and the fact that it remains stable comparing back to at [facility] 10/2017, this is almost certainly a benign lesion, something nina to fibrous dysplasia or the sor t. IMPRESSION: 1. No scintigraphic evidence of osseous metastatic disease. 2. Mild activity along the lateral aspect of the left seventh rib, likely corresponds to the lesion of concern on prior imaging. As discussed above, this is almost certainly benign, such as fibrous dys plasia for example.
== END | disposition home or self-care (01) ==
LOC: RADNMMAIN 07:17
PROVIDERS: ATTEND Internal Medicine
DX: M99.88 Other biomechanical lesions of rib cage (principal)
CPT/HCPCS: 78306; A9503

== ENCOUNTER 2023-07-11 17:49 | Observation (INO) | payer MEDICARE, OTHER ==
--- NOTE | 2023-07-11 18:46 | ED ---
Chest Pain HPI - General Chief Complaint: Chest Pain Stated Complaint: Chest pain Time Seen by Provider: 07/11/23 18:32 Source: patient, family Mode of arrival: wheelchair Limitations: no limitations - History of Present Illness Initial Comments: 53-year-old female with a past medical history significant for obesity, diabetes, COPD, hyperlipidemia presenting to the ED with a chief complaint of chest pain. Patient states yesterday onset of pain in the middle/left side of her chest which seems to radiate to her left arm. Pain is intermittent in natur e. She describes it as a crushing sensation. Reports since yesterday pain has become more frequent and more severe in nature prompting presentation to the ED for further evaluation. Does note some associated shortness of breath with this. No fever or chills. No other complaints at this time. - Related Data Home Medications Medication Instructions Recorded Confirmed Gabapentin 800 mg PO TID 02/15/14 12/20/22 Pantoprazole Sodium 40 mg PO DAILY 02/15/14 12/20/22 Fenofibrate Nanocrystallized 145 mg PO DAILY 01/29/17 12/20/22 [Fenofibrate] Ferrous Sulfate [Iron (65 MG 325 mg PO BID 01/29/17 12/20/22 Elemental)] Fluticasone Nasal [place] [Flonase 1 spray EA NOSTRIL DAILY PRN 10/22/17 12/20/22 Nasal [place]] Atorvastatin [Lipitor] 10 mg PO DAILY 05/02/22 12/20/22 Fluticasone/Umeclidin/Vilanter 1 puff INHALATION RT-DAILY 05/02/22 12/20/22 [Larry Saunders 100-62.5-25] Folic Acid 1 mg PO DAILY 05/02/22 12/20/22 Insulin Glargine,Hum.rec.anlog 50 units SQ HS 05/02/22 12/20/22 [Lantus Solostar Pen] Montelukast [Singulair] 10 mg PO DAILY 05/02/22 12/20/22 Mv,Calcium,Min/Iron/Folic/Vitk 1 tab PO DAILY 05/02/22 12/20/22 [One-A-Day Women's Complete Tab] Desvenlafaxine Succinate 25 mg PO DAILY 08/10/22 12/20/22 [Desvenlafaxine Succinate ER] INSULIN LISPRO (HumaLOG) [humaLOG] See Protocol SQ TID-W/MEALS PRN 08/10/22 12/20/22 Baclofen [Lioresal] 10 mg PO BID PRN 10/30/22 12/20/22 Cholecalciferol [Vitamin D3 (25 50 mcg PO DAILY 10/30/22 12/20/22 Mcg = 1000 Iu)] Famotidine 40 mg PO DAILY 10/30/22 12/20/22 HYDROcodone/APAP 5-325MG [[place] 1 tab PO BID PRN 10/30/22 12/20/22 5-325] Levothyroxine Sodium [Synthroid] 75 mcg PO DAILY 10/30/22 12/20/22 QUEtiapine FUMARATE [SEROquel] 300 mg PO HS 10/30/22 12/20/22 Tirzepatide [Mounjaro] 7.5 mg SQ TU 10/30/22 12/20/22 lamoTRIgine 50 mg PO BID 10/30/22 12/20/22 lamoTRIgine 200 mg PO BID 10/30/22 12/20/22 Meloxicam 7.5 mg PO DAILY 12/20/22 12/20/22 busPIRone HCL [Buspirone HCl] 10 mg PO DAILY 12/20/22 12/20/22 Previous Rx's Medication Instructions Recorded Albuterol Inhaler [Ventolin Hfa 1 - 2 puff INHALATION RT-Q6H PRN 11/02/22 Inhaler] #1 each Allergies Allergy/AdvReac Type Severity Reaction Status Date / Time morphine AdvReac Hallucinati Verified 12/21/22 08:13 ons Review of Systems ROS Statement: Those systems with pertinent positive or pertinent negative responses have been documented in the HPI. ROS Other: All systems not noted in ROS Statement are negative. Past Medical History Past Medical History: Diabetes Mellitus, Fibromyalgia, GERD/Reflux, Hyperlipidemia, Musculoskeletal Disorder, Pneumonia History of Any Multi-Drug Resistant Organisms: MRSA Date of last positivie culture/infection: 2011 MDRO Source:: RT AXILLA Past Surgical History: Back Surgery, Section Additional Past Surgical History / Comment(s): PAIN CLINIC SERVICES. eye surgery, lump taken off vocal cord, LEFT CATARACT REMOVED. NECK SURGERY 2010 C3-C7 Past Anesthesia/Blood Transfusion Reactions: Previous Problems w/ Anesthesia Additional Past Anesthesia/Blood Transfusion Reaction / Comment(s): problem coming out of anesthetic, STATES VERY EMOTIONAL AND ANXIOUS Past Psychological History: Anxiety, Depression Smoking Status: Former smoker Past Alcohol Use History: Rare Past Drug Use History: None Reported - Past Family History Mother Family Medical History: COPD, Dementia, Memory Impairment Additional Family Medical History / Comment(s): depression General Exam Limitations: no limitations General appearance: alert, in no apparent distress Eye exam: Present: normal appearance Neck exam: Present: normal inspection Respiratory exam: Present: normal lung sounds bilaterally, chest wall tenderness (Reproducible mid/left chest tenderness to palpation.) Cardiovascular Exam: Present: regular rate GI/Abdominal exam: Present: soft, normal bowel sounds. Absent: distended, tenderness, guarding, rebound, rigid Extremities exam: Present: normal inspection Neurological exam: Present: alert, oriented X3 Skin exam: Present: warm, dry Course Vital Signs 07/11/23 07/11/23 18:14 18:58 Temperature 98.5 F Pulse Rate 93 92 Respiratory 18 16 Rate Blood Pressure 147/96 168/86 O2 Sat by Pulse 99 Oximetry Chest Pain MDM - MDM Was pt. sent in by a medical professional or institution (, PA, FIRE EQUIPMENT INSPECTOR HELPER, urgent care, hospital, or skilled nursing...) When possible be specific @ -No Did you speak to anyone other than the patient for history (EMS, parent, family, police, friend...)? What history was obtained from this source @ -No Did you review nursing and triage notes (agree or disagree)? Why? @ -I reviewed and agree with nursing and triage notes Were old charts reviewed (outside hosp., previous admission, EMS record, old EKG, old radiological studies, urgent care reports/EKG's, skilled nursing records)? Report findings @ -No old charts were reviewed Differential Diagnosis (chest pain, altered mental status, abdominal pain women, abdominal pain men, vaginal bleeding, weakness, fever, dyspnea, syncope, headache, dizziness, GI bleed, back pain, seizure, CVA, palpatations, mental health, musculoskeletal)? @ -Differential Chest Pain: Stable Angina, Unstable Angina, STEMI, NSTEMI Aortic Dissection, Pneumothorax, Musculoskeletal, Esophageal Spasm GERD, Cholecystitis, Pancreatitis, Zoster, this is not meant to be an all-inclusive list. EKG interpreted by me (3pts min.). @ -EKG interpreted by me which shows a sinus rhythm with diffuse J point elevation at a rate of 90 beats per minute, [place] 160, QRS 98, QT/QTc 346/394. Repeat EKG was performed which appears largely unchanged from prior showing a sinus rhythm with diffuse J point elevation at a rate of 87 bpm. [place] 158, QRS 100, QT/QTc 344/389. X-rays interpreted by me (1pt min.). @ -Chest x-ray inter by me which revealed no evidence of acute finding. CT interpreted by me (1pt min.). @ -None done U/S interpreted by me (1pt. min.). @ -None done What testing was considered but not performed or refused? (CT, X-rays, U/S, labs)? Why? @ -None What meds were considered but not given or refused? Why? @ -None Did you discuss the management of the patient with other professionals (professionals i.e. , PA, FIRE EQUIPMENT INSPECTOR HELPER, lab, RT, psych nurse, social service worker, iridologist, teacher, facilities officer, caseworker protective services)? Give summary @ -Case discussed with Dr. Nelson, who accepts admission. Was smoking cessation discussed for >3mins.? @ -No Was critical care preformed (if so, how long)? @ -No Were there social determinants of health that impacted care today? How? (Homelessness, low income, unemployed, alcoholism, drug addiction, transportation, low edu. Level, literacy, decrease access to med. care, group home, rehab)? @ -No Was there de-escalation of care discussed even if they declined (Discuss DNR or withdrawal of care, Hospice)? DNR status @ -No What co-morbidities impacted this encounter? (DM, HTN, Smoking, COPD, CAD, Cancer, CVA, ARF, Chemo, Hep., AIDS, mental health diagnosis, sleep apnea, morbid obesity)? @ -Obesity, diabetes, hyperlipidemia Was patient admitted / discharged? Hospital course, mention meds given and route, prescriptions, significant lab abnormalities, going to OR and other pertinent info. @ -Admission 53-year-old female presents to the ED with complaints of chest pain. States onset yesterday. Pain is intermittent in nature. Laboratory studies reviewed. Labs including CBC, CMP, coagulation studies unremarkable. Troponin x 2 undetectable. EKG showed a sinus rhythm with some diffuse J-point elevation. Chest x-ray revealed no evidence of acute finding. Patient will be admitted to observation with consult to cardiology to rule out ACS. Undiagnosed new problem with uncertain prognosis? @ -No Drug Therapy requiring intensive monitoring for toxicity (Heparin, Nitro, Insulin, Cardizem)? @ -No Were any procedures done? @ -No Diagnosis/symptom? @ -Chest pain Acute, or Chronic, or Acute on Chronic? @ -Acute Uncomplicated (without systemic symptoms) or Complicated (systemic symptoms)? @ -Uncomplicated Side effects of treatment? @ -No Exacerbation, Progression, or Severe Exacerbation? @ -No Poses a threat to life or bodily function? How? (Chest pain, [place], ID, pneumonia, PE, COPD, DKA, ARF, appy, cholecystitis, CVA, Diverticulitis, Homicidal, Suicidal, threat to staff... and all critical care pts) @ -Possibly however at this time unlikely Disposition Clinical Impression: Chest pain Disposition: ADMITTED IP TO THIS HOSP Condition: Good Instructions (If sedation given, give patient instructions): Chest Pain (ED) Referrals: Rachel Burns DO [Primary Care Provider] - 1-2 days Time of Disposition: 00:00
[2023-07-11] MEDS: ASPIRIN 81 MG PO STA (19:06)
[2023-07-11 19:15] LABS: Basophils # (A) 0.1 k/uL (0-0.2); Basophils % (A) 1 %; Eosinophils # (A) 0.2 k/uL (0-0.7); Eosinophils % (A) 2 %; HCT 42.4 % (34.0-46.0); HGB 13.9 gm/dL (11.4-16.0); Lymphocytes # (A) 1.7 k/uL (1.0-4.8); Lymphocytes % (A) 23 %; MCH 32.3 pg (25.0-35.0); MCHC 32.9 g/dL (31.0-37.0); MCV 98.4 fL (80.0-100.0); Mean Platelet Volume 9.1; Monocytes # (A) 0.4 k/uL (0-1.0); Monocytes % (A) 5 %; Neutrophils # (A) 5.2 k/uL (1.3-7.7); Neutrophils % (A) 67 %; Platelet Count 191 k/uL (150-450); RBC 4.31 m/uL (3.80-5.40); RDW 13.2 % (11.5-15.5); WBC 7.7 k/uL (3.8-10.6)
[2023-07-11 19:26] LABS: ALT 136 U/L (4-34); AST 120 U/L (14-36); African American GFR (CKD) 61 (>60 ml/min/1.73 sqM); Albumin 4.1 g/dL (3.5-5.0); Alkaline Phosphatase 154 U/L (38-126); Anion Gap 12 mmol/L; Blood Urea Nitrogen 22 mg/dL (7-17); Calcium 9.5 mg/dL (8.4-10.2); Carbon Dioxide 23 mmol/L (22-30); Chloride 103 mmol/L (98-107); Glucose 340 mg/dL (74-99); Non-African American GFR(CKD) 53 (>60 ml/min/1.73 sqM); Potassium 5.2 mmol/L (3.5-5.1); Sodium 138 mmol/L (137-145); Total Bilirubin 0.3 mg/dL (0.2-1.3); Total Protein 7.1 g/dL (6.3-8.2)
[2023-07-11 19:35] LABS: Prothrombin Time 10.8 sec (10.0-12.5)
--- NOTE | 2023-07-11 20:13 | XR ---
EXAMINATION TYPE: XR chest 2V DATE OF EXAM: 07/11/2023 6:22 PM CLINICAL INDICATION:Female, 53 years old with history of Chest Pain; [facility] COMPARISON: 03/13/2023 and other prior studies TECHNIQUE: XR chest 2V. Frontal and lateral views of the chest.. FINDINGS: Lines/Tubes/Devices: No indwelling lines are seen. Heart/mediastinum: Heart size upper normal. Mediastinum appears normal. Pulmonary vascularity: Not increased, Lungs/Pleura: There is no evidence of pleural effusion, focal consolidation, or pneumothorax. Musculoskeletal: No acute osseous abnormality demonstrated in the limits of the exam. ACDF hardware over the lower cervical spine. Similar mildly expansile appearance of the left lateral seventh rib ap pears stable; please refer to prior reports. Other findings: None. IMPRESSION: No acute findings, or significant interval change.
[2023-07-11] MEDS: SODIUM CHLORIDE 0.9% 1,000 ML IV STA (20:53)
[2023-07-12] MEDS ORDERED: ONDANSETRON 4 MG/2 ML VIAL IVP PRN (00:12)
[2023-07-12] MEDS ORDERED: NALOXONE 0.4 MG/ML 1 ML VIAL IV PRN (00:12)
[2023-07-12] MEDS ORDERED: ACETAMINOPHEN TAB 325 MG TAB PO PRN (00:12)
[2023-07-12] MEDS ORDERED: DEXTROSE 50% SYRINGE 50 ML IVP PRN ×2 (00:15)
[2023-07-12] MEDS: SODIUM CHLORIDE 0.9% 1,000 ML IV SCH (00:42)
[2023-07-12 00:46] LABS: Glucose,Whole Blood 233 mg/dL (70-110)
[2023-07-12] MEDS: INSULIN DETEMIR (LEVEMIR) 100 UNIT/ML SYR SQ ONE (01:28)
[2023-07-12 08:18] LABS: Glucose,Whole Blood 172 mg/dL (70-110)
[2023-07-12] MEDS: INSULIN ASPART (NovoLOG) 100 UNIT/ML VIAL SQ SCH (08:23)
[2023-07-12 08:27] VITALS: RESP 16
--- NOTE | 2023-07-12 09:31 | P.CRDCN ---
History of Present Illness History of present illness: HISTORY OF PRESENT ILLNESS: This is a 53-year-old female with a past medical history significant for fibromyalgia, diabetes, hyperlipidemia, anxiety, depression, and former nicotine dependence. Patient does not follow with a senior climate advisor. We have been asked to see the patient in consultation for chest pain. Patient examined at the bedside. Patient states she had an episode of chest pain 2 days ago. She reports that the pain was in the middle of her chest and felt like somebody was standing on her chest. She states she was not doing anything when it started. The pain eventually went away. She states yesterday she took her dog for a walk and then had something to eat and shortly after eating the pain came back. She denied having any chest pain while taking her dog for a walk. She denied any shortness of breath. Denied any nausea or vomiting. She denies any chest pain or pressure at the time of examination. Patient's blood pressure was found to be elevated upon admission with a systolic ranging between [id number]. She is a former cigarette smoker. She reports minimal alcohol use. She denies any drug use including marijuana. DIAGNOSTICS: - EKG reveals sinus mechanism with nonspecific ST-T wave changes. - Chest xray negative for acute process. - Laboratory data: WBC 7.7. Hemoglobin 13.9. Platelet count 191. Sodium 138. Potassium 5.2. BUN 22. Creatinine 1.17. AST 120. ALT 136. Troponin negative x 3 - Current home cardiac medications include Lipitor 10 mg daily. REVIEW OF SYSTEMS: At the time of my exam: CONSTITUTIONAL: Denies fever or chills. HEENT: Denies blurred vision, vision changes, or eye pain. Denies hemoptysis CARDIOVASCULAR: Denies chest pain. Denies orthopnea. Denies PND. Denies palpitations RESPIRATORY: Denies shortness of breath. GASTROINTESTINAL: Denies abdominal pain. Denies nausea or vomiting. HEMATOLOGIC: Denies bleeding disorders. GENITOURINARY: Denies any blood in urine. SKIN: Denies pruitis. Denies rash. PHYSICAL EXAM: VITAL SIGNS: Reviewed. GENERAL: Well-developed in no acute distress. HEENT: Head is normocephalic. Pupils are equal, round. Sclerae anicteric. Mucous membranes of the mouth are moist. Neck supple. No JVD or thyromegaly LUNGS: Respirations even and unlabored. Lungs essentially clear to auscultation bilaterally. HEART: Regular rate and rhythm. S1 and S2 heard. ABDOMEN: Soft. Nondistended. Nontender. EXTREMITIES: Normal range of motion. No clubbing or cyanosis. Peripheral pulses intact. No lower extremity edema NEUROLOGIC: Awake and alert. Oriented x 3. ASSESSMENT: Chest pain Hypertension Hyperlipidemia Diabetes Anxiety Depression Former nicotine dependence Fibromyalgia PLAN: An acute coronary event has been ruled out Obtain 2D echo to assess cardiac structure and function Add losartan 25 mg daily for optimal blood pressure control Patient to undergo Cardiolite stress test today Further recommendations pending patient course Nurse practitioner note has been reviewed by physician. Signing provider agrees with the documented findings, assessment, and plan of care documented by SYSTEMS ANALYST DEVELOPER as a scribe. Past Medical History Past Medical History: Diabetes Mellitus, Fibromyalgia, GERD/Reflux, Hyperlipidemia, Musculoskeletal Disorder, Pneumonia History of Any Multi-Drug Resistant Organisms: MRSA Date of last positivie culture/infection: 2011 MDRO Source:: RT AXILLA Past Surgical History: Back Surgery, Section Additional Past Surgical History / Comment(s): PAIN CLINIC SERVICES. eye surgery, lump taken off vocal cord, LEFT CATARACT REMOVED. NECK SURGERY 2010 C3-C7 Past Anesthesia/Blood Transfusion Reactions: Previous Problems w/ Anesthesia Additional Past Anesthesia/Blood Transfusion Reaction / Comment(s): problem coming out of anesthetic, STATES VERY EMOTIONAL AND ANXIOUS Past Psychological History: Anxiety, Depression Smoking Status: Former smoker Past Alcohol Use History: Rare Past Drug Use History: None Reported - Past Family History Mother Family Medical History: COPD, Dementia, Memory Impairment Additional Family Medical History / Comment(s): depression Medications and Allergies Home Medications Medication Instructions Recorded Confirmed Type Gabapentin 800 mg PO TID 02/15/14 07/12/23 History Pantoprazole Sodium 40 mg PO DAILY 02/15/14 07/12/23 History Fenofibrate Nanocrystallized 145 mg PO DAILY 01/29/17 07/12/23 History [Fenofibrate] Ferrous Sulfate [Iron (65 MG 325 mg PO BID 01/29/17 07/12/23 History Elemental)] Atorvastatin [Lipitor] 10 mg PO DAILY 05/02/22 07/12/23 History Folic Acid 1 mg PO DAILY 05/02/22 07/12/23 History Insulin Glargine,Hum.rec.anlog 60 units SQ HS 05/02/22 07/12/23 History [Lantus Solostar Pen] Montelukast [Singulair] 10 mg PO DAILY 05/02/22 07/12/23 History Mv,Calcium,Min/Iron/Folic/Vitk 1 tab PO DAILY 05/02/22 07/12/23 History [One-A-Day Women's Complete Tab] Desvenlafaxine Succinate 25 mg PO DAILY 08/10/22 07/12/23 History [Desvenlafaxine Succinate ER] INSULIN LISPRO (HumaLOG) [humaLOG] See Protocol SQ TID-W/MEALS PRN 08/10/22 07/12/23 History Baclofen [Lioresal] 10 mg PO BID PRN 10/30/22 07/12/23 History Cholecalciferol [Vitamin D3 (25 50 mcg PO DAILY 10/30/22 07/12/23 History Mcg = 1000 Iu)] Famotidine 40 mg PO DAILY 10/30/22 07/12/23 History Levothyroxine Sodium [Synthroid] 75 mcg PO DAILY 10/30/22 07/12/23 History QUEtiapine FUMARATE [SEROquel] 300 mg PO HS 10/30/22 07/12/23 History Tirzepatide [Mounjaro] 7.5 mg SQ TU 10/30/22 07/12/23 History lamoTRIgine 200 mg PO BID 10/30/22 07/12/23 History HYDROcodone/APAP 7.5-325MG [[place] 1 tab PO TID PRN 07/12/23 07/12/23 History 7.5-325] OLANZapine [ZyPREXA] 15 mg PO HS 07/12/23 07/12/23 History Umeclidinium [place] [Incruse 1 puff INHALATION RT-DAILY 07/12/23 07/12/23 History Ellipta] Allergies Allergy/AdvReac Type Severity Reaction Status Date / Time morphine AdvReac Hallucinati Verified 07/12/23 07:06 ons Physical Exam Vitals: Vital Signs Temp Pulse Resp BP Pulse Ox 07/12/23 06:28 79 18 120/69 96 07/12/23 02:00 87 16 165/96 96 07/12/23 00:00 87 15 183/95 96 07/11/23 23:00 90 14 171/93 96 07/11/23 18:58 92 16 168/86 99 07/11/23 18:14 98.5 F 93 18 147/96 Intake and Output 07/11/23 07/12/23 07/12/23 22:59 06:59 14:59 Other: Weight 76.657 kg Results 07/11/23 18:55 07/11/23 18:55 Cardiac Enzymes 07/11/23 07/11/23 07/11/23 Range/Units 18:55 18:55 22:09 AST 120 H (14-36) U/L Troponin I <0.012 <0.012 (0.000-0.034) ng/mL 07/12/23 Range/Units 06:48 AST (14-36) U/L Troponin I <0.012 (0.000-0.034) ng/mL Coagulation 07/11/23 Range/Units 18:55 PT 10.8 (10.0-12.5) sec APTT 26.0 (22.0-30.0) sec CBC 07/11/23 Range/Units 18:55 WBC 7.7 (3.8-10.6) k/uL RBC 4.31 (3.80-5.40) m/uL Hgb 13.9 (11.4-16.0) gm/dL Hct 42.4 (34.0-46.0) % Plt Count 191 (150-450) k/uL Comprehensive Metabolic Panel 07/11/23 Range/Units 18:55 Sodium 138 (137-145) mmol/L Potassium 5.2 H (3.5-5.1) mmol/L Chloride 103 (98-107) mmol/L Carbon Dioxide 23 (22-30) mmol/L BUN 22 H (7-17) mg/dL Creatinine 1.17 H (0.52-1.04) mg/dL Glucose 340 H (74-99) mg/dL Calcium 9.5 (8.4-10.2) mg/dL AST 120 H (14-36) U/L ALT 136 H (4-34) U/L Alkaline Phosphatase 154 H (38-126) U/L Total Protein 7.1 (6.3-8.2) g/dL Albumin 4.1 (3.5-5.0) g/dL Current Medications Generic Name Dose Route Start Last Admin Trade Name Freq PRN Reason Stop Dose Admin Acetaminophen 650 mg 07/12/23 00:12 Acetaminophen Tab 325 Mg Tab PO Q6HR PRN Mild Pain or Fever > 100.5 Dextrose/Water 25 ml 07/12/23 00:15 Dextrose 50% Syringe 50 Ml IVP PER PROTOCOL PRN Hypoglycemia Protocol Dextrose/Water 50 ml 07/12/23 00:15 Dextrose 50% Syringe 50 Ml IVP PER PROTOCOL PRN Hypoglycemia Protocol Sodium Chloride 1,000 mls @ 50 mls/hr 07/12/23 00:15 07/12/23 00:42 Saline 0.9% IV 50 mls/hr .Q20H GUERRERO Administration Insulin Aspart 0 unit 07/12/23 07:30 Insulin Aspart (Novolog) 100 Unit/Ml Vial SQ ACHS GUERRERO Protocol Naloxone HCl 0.2 mg 07/12/23 00:12 Naloxone 0.4 Mg/Ml 1 Ml Vial IV Q2M PRN Opioid Reversal Ondansetron HCl 4 mg 07/12/23 00:12 Ondansetron 4 Mg/2 Ml Vial IVP Q8HR PRN Nausea And Vomiting Intake and Output 07/11/23 07/12/23 07/12/23 22:59 06:59 14:59 Other: Weight 76.657 kg 07/11/23 18:55 07/11/23 18:55
[2023-07-12] MEDS ORDERED: REGADENOSON 0.4 MG/5 ML SYRINGE IV ONE (10:25)
--- NOTE | 2023-07-12 11:27 | CA ---
Lexiscan Nuclear Stress Test Report Name: Mary Tejada Exam Date: 07/12/2023 10:24 Exam Location: [place] Stress Ht (in): 61 Wt (lb): 169 BSA: 1.76 Ordering Phys: Kaylee Aguilar Referring Phys: KAYLEE AGUILAR Technologist: Yusuf Sykes Age: 53 Gender: F : 1970 Procedure CPT: Indications: Reflex order-Stress test ICD-10 Codes: Patient History: CP, MAURICIO, DM, CHOL, COPD Medications: SEE CHART Meds past 24 hrs: Pretest Chest Pain: STRESS TEST Lexiscan Protocol Exercise Duration (min:sec): 01:[address] Depressions (mm): Angina Score: Nelson Score: Resting HR (bpm): 85 Peak HR (bpm): 97 Resting BP (mmHg): 155 / 90 Peak BP (mmHg): 163 / 82 MPHR: 166 Target HR: 141 % MPHR: 58 METS: 1.0 Total Dose: Peak Dose: Atropine: Double Product: 59203 BP Response: Stress Termination: Reached target heart rate Stress Symptoms: Nausea Stress Summary: ECG ANALYSIS Resting ECG: Stress ECG: CONCLUSIONS RESTING EKG: [Normal sinus rhythm, normal EKG] , Patient recieved IV infusion of Lexiscan 0.4mg and at peak infusion STRESS EKG showed: [No significant ST-T wave changes diagnostic for ischemia by ST segment analysis] ARRYTHMIAS: [No ectopic rhythms or sustained arrythmias] CONCLUSION: 1. Normal hemodynamic and clinical response to Lexiscan infusion. 2. Non-ischemic EKG response to lexiscan infusion Please refer to the nuclear imaging portion of this stress test for complete interpretation of the study. Dr Scott Fleming (Electronically Signed) Final Date: 12 July 2023 11:26
--- NOTE | 2023-07-12 11:33 | NM ---
EXAMINATION TYPE: NM stress lexiscan cardiolite DATE OF EXAM: 07/12/2023 COMPARISON: NONE CLINICAL INDICATION: Female, 53 years old with history of CP; TECHNIQUE: After the intravenous administration of 10.3 mCi Tc 99m Sestamibi - Cardiolite resting SP ECT images acquired 60 minutes post injection. The patient received 0.4mg Lexiscan, 24.8 mCi Tc 99m Sestamibi - Stress images obtained [address] injection FINDINGS: Review of stress and rest SPECT images demonstrates no distinct perfusion abnormality. Gated analysi s shows normal wall motion with an estimated left ventricular ejection fraction of 58 %. IMPRESSION: No scintigraphic evidence for reversible ischemia.
[2023-07-12 11:34] LABS: Glucose,Whole Blood 134 mg/dL (70-110)
[2023-07-12] MEDS: PANTOPRAZOLE 40 MG/10 ML VIAL IVP SCH (11:52)
[2023-07-12] MEDS: LOSARTAN 25 MG TAB PO SCH (11:52)
--- NOTE | 2023-07-12 12:02 | P.HPIM ---
History of Present Illness H&P Date: 07/12/23 Chief Complaint: Chest pain History and Physical and Discharge Summary: This is a 53-year-old female with a past medical history significant for Bipolar, anxiety, depression, diabetes mellitus, gastroesophageal reflux dis ease, cervical degenerative disc disease, fibromyalgia, prior nicotine dependence-quit 8 months ago, presented to the ER with progressive midsternal chest pain/chest pressure started initially on Saturday, spontaneously resolved. Denied exertional activity or trauma. Yesterday, reports she had w alked her dog, sat down to eat dinner, proceeded to the couch, midsternal chest pain recurred, radiating to the left shoulder and left arm, accompanied by diaphoresis, facial flushing and mild shortness of breath. transported patient to the ER. Chest x-ray reported nonacute. Troponins negative x 3. EKG reviewed/evaluated by cardiology, scheduled for Cardiolite stress test. Hematology, coagulation panels unremarkable, BUN 22, creatinine 1.17, potassium 5.2. Glucose 340, currently 134, previous hemoglobin A1c 8.2. AST 120, ALT 136, alk phos 154. Reports minimal alcohol use, history of hepatic steatosis. Denies nausea vomiting or diarrhea. Denies abdominal pain. Review of Systems ROS Statement: Those systems with pertinent positive or pertinent negative responses have been documented in the HPI. ROS Other: All systems not noted in ROS Statement are negative. Past Medical History Past Medical History: Diabetes Mellitus, Fibromyalgia, GERD/Reflux, Hyperlipidemia, Musculoskeletal Disorder, Pneumonia History of Any Multi-Drug Resistant Organisms: MRSA Date of last positivie culture/infection: 2011 MDRO Source:: RT AXILLA Past Surgical History: Back Surgery, Section Additional Past Surgical History / Comment(s): PAIN CLINIC SERVICES. eye surgery, lump taken off vocal cord, LEFT CATARACT REMOVED. NECK SURGERY 2010 C3-C7 Past Anesthesia/Blood Transfusion Reactions: Previous Problems w/ Anesthesia Additional Past Anesthesia/Blood Transfusion Reaction / Comment(s): problem com ing out of anesthetic, STATES VERY EMOTIONAL AND ANXIOUS Past Psychological History: Anxiety, Depression Smoking Status: Former smoker Past Alcohol Use History: Rare Past Drug Use History: None Reported - Past Family History Mother Family Medical History: COPD, Dementia, Memory Impairment Additional Family Medical History / Comment(s): depression Medications and Allergies Home Medications Medication Instructions Recorded Confirmed Type Gabapentin 800 mg PO TID 02/15/14 07/12/23 History Pantoprazole Sodium 40 mg PO DAILY 02/15/14 07/12/23 History Fenofibrate Nanocrystallized 145 mg PO DAILY 01/29/17 07/12/23 History [Fenofibrate] Ferrous Sulfate [Iron (65 MG 325 mg PO BID 01/29/17 07/12/23 History Elemental)] Atorvastatin [Lipitor] 10 mg PO DAILY 05/02/22 07/12/23 History Folic Acid 1 mg PO DAILY 05/02/22 07/12/23 History Insulin Glargine,Hum.rec.anlog 60 units SQ HS 05/02/22 07/12/23 History [Lantus Solostar Pen] Montelukast [Singulair] 10 mg PO DAILY 05/02/22 07/12/23 History Mv,Calcium,Min/Iron/Folic/Vitk 1 tab PO DAILY 05/02/22 07/12/23 History [One-A-Day Women's Complete Tab] Desvenlafaxine Succinate 25 mg PO DAILY 08/10/22 07/12/23 History [Desvenlafaxine Succinate ER] INSULIN LISPRO (HumaLOG) [humaLOG] See Protocol SQ TID-W/MEALS PRN 08/10/22 07/12/23 History Baclofen [Lioresal] 10 mg PO BID PRN 10/30/22 07/12/23 History Cholecalciferol [Vitamin D3 (25 50 mcg PO DAILY 10/30/22 07/12/23 History Mcg = 1000 Iu)] Famotidine 40 mg PO DAILY 10/30/22 07/12/23 History Levothyroxine Sodium [Synthroid] 75 mcg PO DAILY 10/30/22 07/12/23 History QUEtiapine FUMARATE [SEROquel] 300 mg PO HS 10/30/22 07/12/23 History Tirzepatide [Mounjaro] 7.5 mg SQ TU 10/30/22 07/12/23 History lamoTRIgine 200 mg PO BID 10/30/22 07/12/23 History HYDROcodone/APAP 7.5-325MG [[place] 1 tab PO TID PRN 07/12/23 07/12/23 History 7.5-325] Losartan [Cozaar] 25 mg PO DAILY #30 tab 07/12/23 Rx OLANZapine [ZyPREXA] 15 mg PO HS 07/12/23 07/12/23 History Umeclidinium [place] [Incruse 1 puff INHALATION RT-DAILY 07/12/23 07/12/23 History Ellipta] Allergies Allergy/AdvReac Type Severity Reaction Status Date / Time morphine AdvReac Hallucinati Verified 07/12/23 07:06 ons Physical Exam Vitals: Vital Signs Temp Pulse Pulse Resp BP BP Pulse Ox 07/12/23 08:23 98.1 F 76 16 167/92 96 07/12/23 06:28 79 18 120/69 96 07/12/23 02:00 87 16 165/96 96 07/12/23 00:00 87 15 183/95 96 07/11/23 23:00 90 14 171/93 96 07/11/23 18:58 92 16 168/86 99 07/11/23 18:14 98.5 F 93 18 147/96 Intake and Output 07/11/23 07/12/23 07/12/23 22:59 06:59 14:59 Other: Weight 76.657 kg PHYSICAL EXAM: VITAL SIGNS: As above GENERAL: Pleasant, alert and oriented x 3, no acute distress HEENT: Normocephalic, Conjunctivae normal. eyes normal. NECK: Supple, No JVD. No thyroid enlargement. No LNs CARDIOVASCULAR: S1, S2 regular. No murmur RESPIRATION: Unlabored, equal air entry, clear to auscultation. ABDOMEN: Soft, nondistended, nontender . No guarding. No masses palpable.+Bowel sounds. LEGS: No edema. no swelling PSYCHIATRY: Alert and oriented X3, mood and affect normal. NERVOUS SYSTEM: Cranial nerves II through XII, no focal deficits. Strength and sensation grossly intact. Skin: Warm and dry, no rash . Results CBC & Chem 7: 07/11/23 18:55 07/11/23 18:55 Labs: Abnormal Lab Results - Last 24 Hours (Table) 07/11/23 07/12/23 07/12/23 Range/Units 18:55 00:45 08:16 Potassium 5.2 H (3.5-5.1) mmol/L BUN 22 H (7-17) mg/dL Creatinine 1.17 H (0.52-1.04) mg/dL Glucose 340 H (74-99) mg/dL POC Glucose (mg/dL) 233 H 172 H (70-110) mg/dL AST 120 H (14-36) U/L ALT 136 H (4-34) U/L Alkaline Phosphatase 154 H (38-126) U/L Assessment and Plan Assessment: Chest pain, abnormal troponins, Lexiscan stress test pending Hypertension Renal insufficiency Minimally elevated LFTs, in a patient with history of minimal alcohol use, hepatic steatosis Diabetes mellitus, hyperglycemia, hemoglobin A1c pending Bipolar disorder, anxiety, depression Chronic cervical degenerative disc disease, spondylosis with facet arthropathy, follows with pain management; Radiofrequency thermocoagulation Left C2 , C3, C4, medial branch with Dr. Melissa 12/21/2022 Fibromyalgia Prior nicotine dependence Plan: Continue on current medication regimen ,monitoring and symptomatic treatment. Cozaar added on for tighter blood pressure control as per cardiology. Echo, Cardiolite stress test pending. Patient will be discharged home today in a stable condition with guarded prognosis pending stress test, final DC recommendations and clearance as per cardiology. Discharge Medication List Gabapentin 800 mg PO TID 02/15/14 [History] Pantoprazole Sodium 40 mg PO DAILY 02/15/14 [History] Fenofibrate Nanocrystallized [Fenofibrate] 145 mg PO DAILY 01/29/17 [History] Ferrous Sulfate [Iron (65 MG Elemental)] 325 mg PO BID 01/29/17 [History] Atorvastatin [Lipitor] 10 mg PO DAILY 05/02/22 [History] Folic Acid 1 mg PO DAILY 05/02/22 [History] Insulin Glargine,Hum.rec.anlog [Lantus Solostar Pen] 60 units SQ HS 05/02/22 [History] Montelukast [Singulair] 10 mg PO DAILY 05/02/22 [History] Mv,Calcium,Min/Iron/Folic/Vitk [One-A-Day Women's Complete Tab] 1 tab PO DAILY 05/02/22 [History] Desvenlafaxine Succinate [Desvenlafaxine Succinate ER] 25 mg PO DAILY 08/10/22 [History] INSULIN LISPRO (HumaLOG) [humaLOG] See Protocol SQ TID-W/MEALS PRN 08/10/22 [History] Baclofen [Lioresal] 10 mg PO BID PRN 10/30/22 [History] Cholecalciferol [Vitamin D3 (25 Mcg = 1000 Iu)] 50 mcg PO DAILY 10/30/22 [History] Famotidine 40 mg PO DAILY 10/30/22 [History] Levothyroxine Sodium [Synthroid] 75 mcg PO DAILY 10/30/22 [History] QUEtiapine FUMARATE [SEROquel] 300 mg PO HS 10/30/22 [History] Tirzepatide [Mounjaro] 7.5 mg SQ TU 10/30/22 [History] lamoTRIgine 200 mg PO BID 10/30/22 [History] HYDROcodone/APAP 7.5-325MG [[place] 7.5-325] 1 tab PO TID PRN 07/12/23 [History] Losartan [Cozaar] 25 mg PO DAILY #30 tab 07/12/23 [Rx] OLANZapine [ZyPREXA] 15 mg PO HS 07/12/23 [History] Umeclidinium [place] [Incruse Ellipta] 1 puff INHALATION RT-DAILY 07/12/23 [History] The impression and plan of care has been dictated as directed. : I performed a history and examination of this patient, discussed the same with the dictator. I agree with the dictator's note ,documented as a scribe. Any additional findings or plans will be noted.
--- NOTE | 2023-07-12 12:02 | CA ---
Transthoracic Echo Report Name: Mary Tejada Age: 53 Gender: F : 1970 Exam Date: 07/12/2023 10:47 Exam Location: [place] Echo Ht (in): 61 Wt (lb): 169 Ordering Physician: Kaylee Aguilar Attending/Referring Phys: [id number], Jeff Manager Patient Maru Shanks RCS Procedure CPT: Indications: LV function, CP Cardiac Hx: Technical Quality: Fair Contrast 1: Total Dose (mL): Contrast 2: Total Dose (mL): MEASUREMENTS (Male / Female) Normal Values 2D ECHO LV Diastolic Diameter PLAX 4.4 cm 4.2 - 5.9 / 3.9 - 5.3 cm LV Systolic Diameter PLAX 3.0 cm IVS Diastolic Thickness 0.8 cm 0.6 - 1.0 / 0.6 - 0.9 cm LVPW Diastolic Thickness 0.9 cm 0.6 - 1.0 / 0.6 - 0.9 cm LV Relative Wall Thickness 0.4 RV Internal Dim ED PLAX 2.5 cm LVOT Diameter 2.0 cm LV Diastolic Volume MOD BP 93.0 cm??? 67 - 155 / 56 - 104 cm??? LV Systolic Volume MOD BP 40.4 cm??? 22 - 58 / 19 - 49 cm??? LV Ejection Fraction MOD BP 56.6 % >= 55 % LV Cardiac Index MOD BP 2248.2 cm???/min???m??? LV Diastolic Volume MOD 4C 90.9 cm??? LV Systolic Volume MOD 4C 35.1 cm??? LV Ejection Fraction MOD 4C 61.4 % LV Cardiac Index MOD 4C 2385.0 cm???/min???m??? LV Diastolic Length 4C 8.2 cm LV Systolic Length 4C 7.0 cm LV Diastolic Volume MOD 2C 89.3 cm??? LV Systolic Volume MOD 2C 44.9 cm??? LV Ejection Fraction MOD 2C 49.7 % LV Cardiac Index MOD 2C 1896.0 cm???/min???m??? LV Diastolic Length 2C 7.5 cm LV Systolic Length 2C 6.7 cm LA Volume 42.5 cm??? 18 - 58 / 22 - 52 cm??? LA Volume Index 23.0 cm???/m??? 16 - 28 cm???/m??? Ascending Aorta Diameter 2.7 cm DOPPLER AV Peak Velocity 134.9 cm/s AV Peak Gradient 7.3 mmHg AV Mean Velocity 87.0 cm/s AV Mean Gradient 3.5 mmHg AV Velocity Time Integral 26.7 cm LVOT Peak Velocity 104.1 cm/s LVOT Peak Gradient 4.3 mmHg LVOT Velocity Time Integral 19.9 cm LVOT Stroke Volume 61.8 cm??? LVOT Stroke Volume Index 35.2 ml/m??? LVOT Cardiac Index 2643.1 cm???/min???m??? AV Area Cont Eq vti 2.3 cm??? AV Area Cont Eq pk 2.4 cm??? Mitral E Point Velocity 60.8 cm/s Mitral A Point Velocity 85.0 cm/s Mitral E to A Ratio 0.7 MV Deceleration Time 165.3 ms MV E' Velocity 5.1 cm/s Mitral E to MV E' Ratio 12.0 PV Peak Velocity 80.1 cm/s PV Peak Gradient 2.6 mmHg FINDINGS Left Ventricle Left ventricular ejection fraction is estimated at 55-60 %. Left ventricular wall thickness normal. Left ventricular cavity size normal. No obvious regional wall motion abnormalities. Right Ventricle Normal right ventricular size and function. Unable to estimate right ventricular systolic pressure. Right Atrium Normal right atrial size. Left Atrium Normal left atrial size. Mitral Valve Structurally normal mitral valve. No mitral stenosis, regurgitation or prolapse. Aortic Valve Aortic valve not well visualized. No aortic valve stenosis or regurgitation. Tricuspid Valve Structurally normal tricuspid valve. No tricuspid stenosis, regurgitation or prolapse. Pulmonic Valve Pulmonic valve not well visualized. No pulmonic stenosis. No pulmonic regurgitation. Pericardium No pericardial effusion. Aorta Normal size aortic root and proximal ascending aorta. CONCLUSIONS Left ventricular ejection fraction is estimated at 55-60 %. No obvious regional wall motion abnormalities. No obvious valvular dysfunction Normal RV RA and LA size No Pericardial effusion Previewed by: Dr Scott Fleming (Electronically Signed) Final Date: 12 July 2023 12:01
[2023-07-12 12:15] VITALS: BP 159/82; PULSE 83; TEMP 98
== END 2023-07-12 14:34 | disposition home or self-care (01) ==
LOC: EC 17:49 → 6NMEDSUR 07-12 00:14
PROVIDERS: ADMIT Family Medicine; ATTEND Family Medicine
DX: R07.89 Other chest pain (principal); J44.9 Chronic obstructive pulmonary disease, unspecified; I10 Essential (primary) hypertension; E11.65 Type 2 diabetes mellitus with hyperglycemia; N28.9 Disorder of kidney and ureter, unspecified; E78.5 Hyperlipidemia, unspecified; M79.7 Fibromyalgia; R23.2 Flushing; R61 Generalized hyperhidrosis; M25.512 Pain in left shoulder; M79.602 Pain in left arm; F31.9 Bipolar disorder, unspecified; F41.9 Anxiety disorder, unspecified; E66.01 Morbid (severe) obesity due to excess calories; Z68.32 Body mass index [BMI] 32.0-32.9, adult; K21.9 Gastro-esophageal reflux disease without esophagitis; M50.30 Other cervical disc degeneration, unspecified cervical region; K76.0 Fatty (change of) liver, not elsewhere classified; M47.812 Spondylosis without myelopathy or radiculopathy, cervical region; Z79.899 Other long term (current) drug therapy; Z79.51 Long term (current) use of inhaled steroids; Z79.4 Long term (current) use of insulin; Z79.890 Hormone replacement therapy; Z79.1 Long term (current) use of non-steroidal anti-inflammatories (NSAID); Z88.5 Allergy status to narcotic agent; Z87.891 Personal history of nicotine dependence; Z79.85 Long-term (current) use of injectable non-insulin antidiabetic drugs
CPT/HCPCS: 96374; 96361; 99285; 36415; 93005; 93017; 93306; 80053; 83735; 84484 ×2; 85025; 85610; 85730; 71046; 78452; G0378; A9500; J2785; C9113

== ENCOUNTER 2023-09-03 16:29 | Emergency (ER) | payer MEDICARE, OTHER ==
--- NOTE | 2023-09-03 16:44 | ED ---
Dizziness HPI - General Source: patient, RN notes reviewed Mode of arrival: wheelchair Limitations: no limitations <Kim Levine - Last Filed: 09/03/23 16:43> - General Source: RN notes reviewed, old records reviewed Mode of arrival: wheelchair Limitations: no limitations - History of Present Illness MD Complaint: dizziness, lightheadedness, other (Room spinning) -: days(s) Timing: gradual onset Description: sense of movement, lightheadedness History of Same: Yes History of Trauma: Yes Severity: moderate Improves With: nothing Worsens With: movement Associated Symptoms: ataxia <Jordin Villatoro - Last Filed: 09/10/23 19:35> - General Chief Complaint: Dizziness Stated Complaint: Nausea, headache, weakness Time Seen by Provider: 09/03/23 16:43 - History of Present Illness Initial Comments: Quick note: 53-year-old female presented to the ER with a chief complaint of nausea and vomiting. Patient is also reporting dizziness as the room spinning. States has been going on since yesterday. Denies any abdominal pain, fevers, chest pain or shortness of breath. (Kim Levine) This is a 53-year-old female to the ER for evaluation of nausea vomiting vertiginous symptoms room spinning lightheadedness dizziness especially with activity. No abdominal pain fevers chest pain or other complaints. No recent change in medications. No trauma (Jordin Villatoro) - Related Data Home Medications Medication Instructions Recorded Confirmed Gabapentin 800 mg PO TID 02/15/14 07/12/23 Pantoprazole Sodium 40 mg PO DAILY 02/15/14 07/12/23 Fenofibrate Nanocrystallized 145 mg PO DAILY 01/29/17 07/12/23 [Fenofibrate] Ferrous Sulfate [Iron (65 MG 325 mg PO BID 01/29/17 07/12/23 Elemental)] Atorvastatin [Lipitor] 10 mg PO DAILY 05/02/22 07/12/23 Folic Acid 1 mg PO DAILY 05/02/22 07/12/23 Insulin Glargine,Hum.rec.anlog 60 units SQ HS 05/02/22 07/12/23 [Lantus Solostar Pen] Montelukast [Singulair] 10 mg PO DAILY 05/02/22 07/12/23 Mv,Calcium,Min/Iron/Folic/Vitk 1 tab PO DAILY 05/02/22 07/12/23 [One-A-Day Women's Complete Tab] Desvenlafaxine Succinate 25 mg PO DAILY 08/10/22 07/12/23 [Desvenlafaxine Succinate ER] INSULIN LISPRO (HumaLOG) [humaLOG] See Protocol SQ TID-W/MEALS PRN 08/10/22 07/12/23 Baclofen [Lioresal] 10 mg PO BID PRN 10/30/22 07/12/23 Cholecalciferol [Vitamin D3 (25 50 mcg PO DAILY 10/30/22 07/12/23 Mcg = 1000 Iu)] Famotidine 40 mg PO DAILY 10/30/22 07/12/23 Levothyroxine Sodium [Synthroid] 75 mcg PO DAILY 10/30/22 07/12/23 QUEtiapine FUMARATE [SEROquel] 300 mg PO HS 10/30/22 07/12/23 Tirzepatide [Mounjaro] 7.5 mg SQ TU 10/30/22 07/12/23 lamoTRIgine 200 mg PO BID 10/30/22 07/12/23 HYDROcodone/APAP 7.5-325MG [[place] 1 tab PO TID PRN 07/12/23 07/12/23 7.5-325] OLANZapine [ZyPREXA] 15 mg PO HS 07/12/23 07/12/[address] [place] [Incruse 1 puff INHALATION RT-DAILY 07/12/23 07/12/23 Ellipta] Previous Rx's Medication Instructions Recorded Losartan [Cozaar] 25 mg PO DAILY #30 tab 07/12/23 Meclizine [Antivert] 25 mg PO TID #15 tab 09/03/23 Ondansetron Odt [Zofran ODT] 4 mg PO Q8HR PRN #10 tab 09/03/23 Allergies Allergy/AdvReac Type Severity Reaction Status Date / Time morphine AdvReac Hallucinati Verified 09/03/23 16:38 ons Review of Systems ROS Other: All systems not noted in ROS Statement are negative. <Kim Levine - Last Filed: 09/03/23 16:43> ROS Other: All systems not noted in ROS Statement are negative. <Jordin Villatoro - Last Filed: 09/10/23 19:35> ROS Statement: Those systems with pertinent positive or pertinent negative responses have been documented in the HPI. Past Medical History Past Medical History: Diabetes Mellitus, Fibromyalgia, GERD/Reflux, Hyperlipidemia, Musculoskeletal Disorder, Pneumonia History of Any Multi-Drug Resistant Organisms: MRSA Date of last positivie culture/infection: 2011 MDRO Source:: RT AXILLA Past Surgical History: Back Surgery, Section Additional Past Surgical History / Comment(s): PAIN CLINIC SERVICES. eye surgery, lump taken off vocal cord, LEFT CATARACT REMOVED. NECK SURGERY 2010 C3-C7 Past Anesthesia/Blood Transfusion Reactions: Previous Problems w/ Anesthesia Additional Past Anesthesia/Blood Transfusion Reaction / Comment(s): problem comi ng out of anesthetic, STATES VERY EMOTIONAL AND ANXIOUS Past Psychological History: Anxiety, Depression Smoking Status: Former smoker Past Alcohol Use History: Rare Past Drug Use History: None Reported - Past Family History Mother Family Medical History: COPD, Dementia, Memory Impairment Additional Family Medical History / Comment(s): depression <Kim Levine - Last Filed: 09/03/23 16:43> General Exam Limitations: no limitations <Kim Levine - Last Filed: 09/03/23 16:43> General appearance: alert, in no apparent distress Head exam: Present: atraumatic, normocephalic, normal inspection Eye exam: Present: normal appearance, PERRL, EOMI, nystagmus. Absent: scleral icterus, conjunctival injection, periorbital swelling ENT exam: Present: normal exam, mucous membranes moist Neck exam: Present: normal inspection. Absent: tenderness, meningismus, lymphadenopathy Respiratory exam: Present: normal lung sounds bilaterally. Absent: respiratory distress, wheezes, rales, rhonchi, stridor Cardiovascular Exam: Present: regular rate, normal rhythm, normal heart sounds. Absent: systolic murmur, diastolic murmur, rubs, gallop, clicks GI/Abdominal exam: Present: soft, normal bowel sounds. Absent: distended, tenderness, guarding, rebound, rigid Extremities exam: Present: normal inspection, full ROM, normal capillary refill. Absent: tenderness, pedal edema, joint swelling, calf tenderness Back exam: Present: normal inspection Neurological exam: Present: alert, oriented X3, CN II-XII intact Psychiatric exam: Present: normal affect, normal mood Skin exam: Present: warm, dry, intact, normal color. Absent: rash <oJrdin Villatoro - Last Filed: 09/10/23 19:35> - General Exam Comments Initial Comments: Visual Physical Exam Vital signs reviewed General: Well-appearing, nontoxic, no acute distress. Head: Normocephalic, atraumatic Eyes: PERRLA, EOMI ENT: Airway patent Chest: Nonlabored breathing Skin: No visual rash, normal skin tone Neuro: Alert and oriented 3 Musculoskeletal: No gross abnormalities (Kim Levien) Course <Jordin Villatoro - Last Filed: 09/10/23 19:35> Vital Signs 09/03/23 09/03/23 09/03/23 16:35 20:07 21:20 Temperature 97.4 F L Pulse Rate 52 L 84 87 Respiratory 118 H 18 18 Rate Blood Pressure 179/77 177/94 168/90 O2 Sat by Pulse 96 95 96 Oximetry 09/03/23 22:05 Temperature Pulse Rate 83 Respiratory 18 Rate Blood Pressure 163/88 O2 Sat by Pulse 95 Oximetry - Reevaluation(s) Reevaluation #1: Records reviewed (Jordin Villatoro) Reevaluation #2: Patient symptoms unchanged (Jordin Villatoro) Reevaluation #3: Patient informed of results questions answered (Jodrin Villatoro) Reevaluation #4: Was pt. sent in by a medical professional or institution (, PA, DRY GOODS INSPECTOR, urgent care, hospital, or [facility]...) When possible be specific @ -no Did you speak to anyone other than the patient for history (EMS, parent, family, police, friend...)? What history was obtained from this source @ -no Did you review nursing and triage notes (agree or disagree)? Why? @ -agree Are old charts reviewed (outside hosp., previous admission, EMS record, old EKG, old radiological studies, urgent care reports/EKG's, [facility] records)? Report findings @ -yes Differential Diagnosis (chest pain, altered mental status, abdominal pain women, abdominal pain men, vaginal bleeding, weakness, fever, dyspnea, syncope, headache, dizziness, GI bleed, back pain, seizure, CVA, palpatations, mental health, musculoskeletal)? @ -prior EKG interpreted by me (3pts min.). @ -yes X-rays interpreted by me (1pt min.). @ -no CT interpreted by me (1pt min.). @ -Yes negative for acute disease U/S interpreted by me (1pt. min.). @ -no What testing was considered but not performed or refused? (CT, X-rays, U/S, la bs)? Why? @ -none What meds were considered but not given or refused? Why? @ -none Did you discuss the management of the patient with other professionals (professionals i.e. DrNasim, PA, DRY GOODS INSPECTOR, lab, RT, psych nurse, psychotherapist social worker, assistant cross country coach, teacher, parachute/combatant diver officer, immigration case manager)? Give summary @ -no Was smoking cessation discussed for >3mins.? @ -no Were there social determinants of health that impacted care today? How? (Homelessness, low income, unemployed, alcoholism, drug addiction, transportation, low edu. Level, literacy, decrease access to med. care, custodial, rehab)? @ -none Was there de-escalation of care discussed even if they declined (Discuss DNR or withdrawal of care, Hospice)? DNR status @ -no What co-morbidities impacted this encounter? (DM, HTN, Smoking, COPD, CAD, Cancer, CVA, ARF, Chemo, Hep., AIDS, mental health diagnosis, sleep apnea, morbid obesity)? @ -none Was patient admitted / discharged? Hospital course, mention meds given and route, prescriptions, significant lab abnormalities, going to OR and other pertinent info. @ - 53 female to ER for evaluation of vertigo. Patient vertiginous symptoms resolved feels well and can be discharged home Discharge Was critical care preformed (if so, how long)? @ -no Undiagnosed new problem with uncertain prognosis? @ -no Drug Therapy requiring intensive monitoring for toxicity (Heparin, Nitro, Insulin, Cardizem)? @ -no Were any procedures done? @ -no Diagnosis/symptom? @ -Vertigo Acute, or Chronic, or Acute on Chronic? @ -Acute Uncomplicated (without systemic symptoms) or Complicated (systemic symptoms)? @ -Complicated Side effects of treatment? @ -no Exacerbation, Progression, or Severe Exacerbation? @ -exacerbation Poses a threat to life or bodily function? How? (Chest pain, USA, LA, pneumonia, PE, COPD, DKA, ARF, appy, cholecystitis, CVA, Diverticulitis, Homicidal, Suicidal, threat to staff... and all critical care pts) @ -yes with CVA symptoms (Jordin Villatoro) Reevaluation #5: Differential Dizziness: Benign paroxysmal positional Vertigo, Menieres disease, otitis media, acoustic neuroma, vertebrobasilar insufficiency, cerebellar stroke, encephalitis, hypovolemic, arrhythmia, coronary artery syndrome, anemia, this is not meant to be an all-inclusive list (Jordin Villatoro) EKG Findings - EKG Comments: EKG Findings:: EKG sinus 75 CO 161 QRS 111 QTc 433 - EKG Results: EKG: interpreted by ERMD <Jordin Villatoro - Last Filed: 09/10/23 19:35> Medical Decision Making <Kim Levine - Last Filed: 09/03/23 16:43> - Lab Data Result diagrams: 09/03/23 18:08 09/03/23 18:08 - EKG Data -: EKG Interpreted by Me - Radiology Data Radiology results: report reviewed (CT brain and CTA head neck negative for acute disease), image reviewed <Jordin Villatoro - Last Filed: 09/10/23 19:35> - Medical Decision Making I performed the quick note portion of this chart. Electronically signed by Kim Levine PA-C (Kim Levine) 53 female to ER for evaluation of vertigo. Patient vertiginous symptoms resolved feels well and can be discharged home (Jordin Villatoro) - Lab Data Lab Results 09/03/23 09/03/23 09/03/23 Range/Units 18:08 18:08 19:52 WBC 5.9 (3.8-10.6) k/uL RBC 3.95 (3.80-5.40) m/uL Hgb 12.7 (11.4-16.0) gm/dL Hct 39.4 (34.0-46.0) % MCV 99.9 (80.0-100.0) fL MCH 32.1 (25.0-35.0) pg MCHC 32.1 (31.0-37.0) g/dL RDW 13.0 (11.5-15.5) % Plt Count 127 L (150-450) k/uL MPV 8.6 Neutrophils % 82 % Lymphocytes % 12 % Monocytes % 4 % Eosinophils % 1 % Basophils % 1 % Neutrophils # 4.8 (1.3-7.7) k/uL Lymphocytes # 0.7 L (1.0-4.8) k/uL Monocytes # 0.2 (0-1.0) k/uL Eosinophils # 0.0 (0-0.7) k/uL Basophils # 0.0 (0-0.2) k/uL Sodium 137 (137-145) mmol/L Potassium 4.4 (3.5-5.1) mmol/L Chloride 105 (98-107) mmol/L Carbon Dioxide 21 L (22-30) mmol/L Anion Gap 11 mmol/L BUN 11 (7-17) mg/dL Creatinine 0.59 (0.52-1.04) mg/dL Est GFR (CKD-EPI)AfAm >90 (>60 ml/min/1.73 sqM) Est GFR (CKD-EPI)NonAf >90 (>60 ml/min/1.73 sqM) Glucose 373 H (74-99) mg/dL Calcium 9.3 (8.4-10.2) mg/dL Total Bilirubin 0.4 (0.2-1.3) mg/dL AST 67 H (14-36) U/L ALT 115 H (4-34) U/L Alkaline Phosphatase 169 H (38-126) U/L Total Protein 7.0 (6.3-8.2) g/dL Albumin 4.1 (3.5-5.0) g/dL Urine Color Colorless Urine Appearance Clear (Clear) Urine pH 7.5 (5.0-8.0) Ur Specific [place] 1.016 (1.001-1.035) Urine Protein 1+ H (Negative) Urine Glucose (UA) 4+ H (Negative) Urine Ketones Trace H (Negative) Urine Blood Negative (Negative) Urine Nitrite Negative (Negative) Urine Bilirubin Negative (Negative) Urine Urobilinogen <2.0 (<2.0) mg/dL Ur Leukocyte Esterase Negative (Negative) Urine RBC <1 (0-5) /hpf Urine WBC <1 (0-5) /hpf Ur Squamous Epith Cells <1 (0-4) /hpf Disposition <Kim Levine - Last Filed: 09/03/23 16:43> Is patient prescribed a controlled substance at d/c from ED?: No Time of Disposition: 21:30 <Jordin Villatoro - Last Filed: 09/10/23 19:35> Clinical Impression: Vertigo Disposition: HOME SELF-CARE Condition: Good Instructions (If sedation given, give patient instructions): Dizziness (ED) Prescriptions: Meclizine [Antivert] 25 mg PO TID #15 tab Ondansetron Odt [Zofran ODT] 4 mg PO Q8HR PRN #10 tab PRN Reason: nausea/vomiting Referrals: Rachel Burns DO [Primary Care Provider] - 1-2 days
[2023-09-03 17:06] VITALS: TEMP 97.4
[2023-09-03 18:24] LABS: Basophils % (A) 1 %; Eosinophils % (A) 1 %; HCT 39.4 % (34.0-46.0); HGB 12.7 gm/dL (11.4-16.0); Lymphocytes # (A) 0.7 k/uL (1.0-4.8); Lymphocytes % (A) 12 %; MCH 32.1 pg (25.0-35.0); MCHC 32.1 g/dL (31.0-37.0); MCV 99.9 fL (80.0-100.0); Mean Platelet Volume 8.6; Monocytes # (A) 0.2 k/uL (0-1.0); Monocytes % (A) 4 %; Neutrophils # (A) 4.8 k/uL (1.3-7.7); Neutrophils % (A) 82 %; Platelet Count 127 k/uL (150-450); RBC 3.95 m/uL (3.80-5.40); WBC 5.9 k/uL (3.8-10.6)
[2023-09-03 18:44] LABS: ALT 115 U/L (4-34); AST 67 U/L (14-36); African American GFR (CKD) >90 (>60 ml/min/1.73 sqM); Albumin 4.1 g/dL (3.5-5.0); Alkaline Phosphatase 169 U/L (38-126); Anion Gap 11 mmol/L; Blood Urea Nitrogen 11 mg/dL (7-17); Calcium 9.3 mg/dL (8.4-10.2); Carbon Dioxide 21 mmol/L (22-30); Chloride 105 mmol/L (98-107); Glucose 373 mg/dL (74-99); Non-African American GFR(CKD) >90 (>60 ml/min/1.73 sqM); Potassium 4.4 mmol/L (3.5-5.1); Sodium 137 mmol/L (137-145); Total Bilirubin 0.4 mg/dL (0.2-1.3)
[2023-09-03] MEDS: ONDANSETRON 4 MG/2 ML VIAL IVP STA (20:06)
[2023-09-03] MEDS: diphenhydrAMINE 50 MG/ML 1 ML VIAL IVP STA (20:07)
[2023-09-03] MEDS: SODIUM CHLORIDE 0.9% 1,000 ML IV STA (20:07)
[2023-09-03 20:10] VITALS: RESP 18
[2023-09-03 20:10] LABS: Appearance,Urine Clear (Clear); Bilirubin,Urine Negative (Negative); Blood,Urine Negative (Negative); Color,Urine Colorless; Glucose,Urine (UA) 4+ (Negative); Ketones,Urine Trace (Negative); Leukocyte Esterase,Urine Negative (Negative); Nitrite,Urine Negative (Negative); PH, Urine 7.5 (5.0-8.0); Protein,Urine 1+ (Negative); RBC,Urine <1 /hpf (0-5); Specific Gravity,Urine 1.016 (1.001-1.035); Squamous Epithelial Cell,Urine <1 /hpf (0-4); Urobilinogen,Urine <2.0 mg/dL (<2.0); WBC,Urine <1 /hpf (0-5)
--- NOTE | 2023-09-03 20:13 | CT ---
EXAMINATION TYPE: CT brain wo con CT DLP: Combined DLP of 1602 mGycm, Automated exposure control for dose reduction was used. DATE OF EXAM: 09/03/2023 8:03 PM COMPARISON: None. CLINICAL INDICATION:Female, 53 years old with history of cva, Vertigo, N/V. TECHNIQUE: Brain: Axial CT images of the brain were obtained with coronal and sagittal reformats created and rev iewed. Contrast used: None. Oral contrast used: None. FINDINGS: Brain: Extra-axial spaces: No abnormal extra-axial fluid collections. Ventricular system: Within normal limits Cerebral parenchyma: No acute intraparenchymal hemorrhage or mass effect. The talbert-white junction is well differentiated. Cerebellum: Unremarkable. Mass effect: No evidence of midline shift. Intracranial vasculature: unremarkable Soft tissues: Normal. Calvarium/osseous structures: No depressed skull fracture. Paranasal sinuses and mastoid air cells: Mild scattered paranasal sinus disease. Visualized orbits: Orbital contents are intact. IMPRESSION: No acute intracranial process.
--- NOTE | 2023-09-03 20:38 | CT ---
EXAMINATION TYPE: CT angio head neck CT DLP: Combined DLP of 1602 mGycm, Automated exposure control for dose reduction was used. DATE OF EXAM: 09/03/2023 8:04 PM COMPARISON: . CLINICAL INDICATION:Female, 53 years old with history of ams; PHH, Vertigo, N/V. TECHNIQUE: Axially acquired helical CT angiogram of the head and neck was obtained with contrast. Axi al images are supplemented with 3D reconstructions and MIP images which were post-processed at an in dependent workstation. NASCET criteria used. Contrast used:65 mL of Isovue 370 with IV Contrast, Oral contrast used: None. FINDINGS: CTA HEAD: No evidence of acute intracranial hemorrhage, mass effect, or midline shift. The ventricles, sulci, a nd cisterns are unremarkable. The visualized portions of the internal carotid arteries, middle cerebral arteries, anterior cerebral arteries, and posterior cerebral arteries are patent. The basilar and vertebral arteries are patent. CTA NECK: Right Carotid System: The common carotid artery and external carotid artery are patent. The carotid bifurcation demonstrate s no evidence of hemodynamically significant stenosis. The remaining portions of the internal carotid artery demonstrate normal size without significant narrowing. Left Carotid System: The common carotid and external carotid arteries are patent. There is less than 25% stenosis at the c arotid bifurcation secondary to calcified/noncalcified plaque. The rest of the internal carotid arter y is patent. Vertebral arteries are patent without evidence hemodynamically significant stenosis. Elongated styloid processes bilaterally impress upon the internal jugular veins with slitlike appeara nce on the right and left. There is a three-vessel aortic arch. The origins of the great vessels are patent. No evidence of hemo dynamically significant stenosis. IMPRESSION: 1. No evidence of dissection of the cervical internal carotid arteries or vertebral arteries or any e vidence of significant stenosis at the carotid bifurcations. 2. No evidence of intracranial high-grade stenosis or intracranial aneurysm. 3. Elongated styloid processes bilaterally which impresses upon the internal jugular extremity and re sults in slitlike appearance of the internal jugular veins. Findings can be seen in setting of wales syndrome.
[2023-09-03] MEDS: SODIUM CHLORIDE 0.9% 1,000 ML IV SCH (21:23)
[2023-09-03] MEDS: ONDANSETRON 4 MG ODT STARTER PACK 2 TAB BTL PO STA (21:53)
[2023-09-03] MEDS: MECLIZINE 12.5 MG TAB PO STA (21:53)
[2023-09-03 22:33] VITALS: BP 163/88; PULSE 83
== END 2023-09-03 22:07 | disposition home or self-care (01) ==
LOC: EC 16:29
DX: R42 Dizziness and giddiness (principal); Z88.5 Allergy status to narcotic agent; Z87.891 Personal history of nicotine dependence
CPT/HCPCS: 36415; 93005; 80053; 85025; 81001; 70496; 70450; 70498; 99284; 96374; 96375; 96361 ×2; J1200; J2405; S0119; Q9967

== ENCOUNTER → 2023-09-18 | Outpatient (CLI) | payer MEDICARE ==
[2023-09-18 17:12] LABS: HCT 42.6 % (37.2-46.3); HGB 13.7 g/dL (12.0-15.0); MCH 31.3 pg (27.0-32.0); MCHC 32.2 g/dL (32.0-37.0); MCV 97.3 FL (80.0-97.0); Mean Platelet Volume 13.2 FL (9.5-12.2); NRBC Per 100 WBC 0 X 10*3/uL (0.00-0.01); Platelet Count 176 X 10*3/uL (140-440); RBC 4.38 X 10*6/uL (4.10-5.20); RBC Morphology Normal (Normal); RDW 13.2 % (11.5-14.5); WBC 6.27 X 10*3/uL (4.50-10.00)
[2023-09-18 17:25] LABS: Erythrocyte Sedimentation Rate 26 mm/Hr (0-30)
== END | disposition home or self-care (01) ==
LOC: LABWHC1 12:14
PROVIDERS: ATTEND Otolaryngology
DX: K14.0 Glossitis (principal)
CPT/HCPCS: 36415; 82607; 82746; 84207; 85027; 85652; 86038; 86235

== ENCOUNTER → 2024-02-17 | Outpatient (CLI) | payer MEDICARE ==
--- NOTE | 2024-02-20 08:02 | MM ---
Reason for Exam: Screening (asymptomatic). Last mammogram was performed 1 year(s) and 4 month(s) ago. Patient History: Menarche at age 7. First Full-Term at age 15. Postmenopausal. Risk Values: Mary 5 year model risk: 0.9%. NCI Lifetime model risk: 6.7%. Prior Study Comparison: 07/26/2015 Bilateral Screening Mammogram, [facility]. 01/07/2017 Bilateral Screening Mammogram, [facility]. 10/24/2022 Bilateral MG 3D screening mammo w/cad, [facility]. Tissue Density: The breasts are heterogeneously dense, which may obscure small masses. Findings: Analyzed By CAD. There is no suspicious group of microcalcifications or new suspicious mass in either breast. Benign appearing calcifications are stable. Overall Assessment: Benign, BI-RAD 2 Management: Screening Mammogram of both breasts in 1 year. . Patient should continue monthly self-breast exams. A clinical breast exam by your physician is recommended on an annual basis. This exam should not preclude additional follow-up of suspicious palpable abnormalities. Note on Mary scores and lifetime risk: 1. A Mary score greater than 3% is considered moderate risk. If this is the case, consider specialist referral to assess eligibility for a risk reducing agent. 2. If overall lifetime risk for the development of breast cancer is 20% or higher, the patient may qualify for future screening with alternating mammogram and breast MRI. [facility], , 02/20/2024 7:59 AM. Electronically signed and approved by: Juan Vaughan M.D. Radiologis
== END | disposition home or self-care (01) ==
LOC: RADMAMWWP 16:20
PROVIDERS: ATTEND Family Medicine
DX: Z12.31 Encounter for screening mammogram for malignant neoplasm of breast (principal); R92.333 Mammographic heterogeneous density, bilateral breasts; Z78.0 Asymptomatic menopausal state
CPT/HCPCS: 77063; 77067

== ENCOUNTER 2024-08-20 22:40 | Emergency (ER) | payer MEDICARE ==
[2024-08-20] MEDS: DIPH,PERTUS(ACELL)TETVAC-LF 0.5 ML VIAL IM ONE (23:37)
--- NOTE | 2024-08-20 23:37 | ED ---
Wound/Laceration HPI - General Chief Complaint: Wound/Laceration Stated Complaint: Laceration L Index Finger Time Seen by Provider: 08/20/24 22:57 Source: patient Mode of arrival: ambulatory Limitations: no limitations - History of Present Illness Initial Comments: 54-year-old female presenting with chief complaint of laceration. Patient has a 1 cm laceration to the left index finger. She was trying to cut a dog collar off of her dog today when she accidentally cut her finger. This is over the proximal finger. She has full range of motion with no loss of sensation. The bleeding is well-controlled at this time. She is unsure when her last tetanus shot was. - Related Data Home Medications Medication Instructions Recorded Confirmed Gabapentin 800 mg PO TID 02/15/14 07/12/23 Pantoprazole Sodium 40 mg PO DAILY 02/15/14 07/12/23 Fenofibrate Nanocrystallized 145 mg PO DAILY 01/29/17 07/12/23 [Fenofibrate] Ferrous Sulfate [Iron (65 MG 325 mg PO BID 01/29/17 07/12/23 Elemental)] Atorvastatin [Lipitor] 10 mg PO DAILY 05/02/22 07/12/23 Folic Acid 1 mg PO DAILY 05/02/22 07/12/23 Insulin Glargine,Hum.rec.anlog 60 units SQ HS 05/02/22 07/12/23 [Lantus Solostar Pen] Montelukast [Singulair] 10 mg PO DAILY 05/02/22 07/12/23 Mv,Calcium,Min/Iron/Folic/Vitk 1 tab PO DAILY 05/02/22 07/12/23 [One-A-Day Women's Complete Tab] Desvenlafaxine Succinate 25 mg PO DAILY 08/10/22 07/12/23 [Desvenlafaxine Succinate ER] INSULIN LISPRO (HumaLOG) [humaLOG] See Protocol SQ TID-W/MEALS PRN 08/10/22 07/12/23 Baclofen [Lioresal] 10 mg PO BID PRN 10/30/22 07/12/23 Cholecalciferol [Vitamin D3 (25 50 mcg PO DAILY 10/30/22 07/12/23 Mcg = 1000 Iu)] Famotidine 40 mg PO DAILY 10/30/22 07/12/23 Levothyroxine Sodium [Synthroid] 75 mcg PO DAILY 10/30/22 07/12/23 QUEtiapine FUMARATE [SEROquel] 300 mg PO HS 10/30/22 07/12/23 Tirzepatide [Mounjaro] 7.5 mg SQ TU 10/30/22 07/12/23 lamoTRIgine 200 mg PO BID 10/30/22 07/12/23 HYDROcodone/APAP 7.5-325MG [Hiwasse 1 tab PO TID PRN 07/12/23 07/12/23 7.5-325] OLANZapine [ZyPREXA] 15 mg PO HS 07/12/23 07/12/23 Umeclidinium Mccaskill [Incruse 1 puff INHALATION RT-DAILY 07/12/23 07/12/23 Ellipta] Previous Rx's Medication Instructions Recorded Losartan [Cozaar] 25 mg PO DAILY #30 tab 07/12/23 Meclizine [Antivert] 25 mg PO TID #15 tab 09/03/23 Ondansetron Odt [Zofran ODT] 4 mg PO Q8HR PRN #10 tab 09/03/23 Allergies Allergy/AdvReac Type Severity Reaction Status Date / Time morphine AdvReac Hallucinati Verified 08/20/24 22:50 ons Review of Systems ROS Statement: Those systems with pertinent positive or pertinent negative responses have been documented in the HPI. ROS Other: All systems not noted in ROS Statement are negative. Past Medical History Past Medical History: Diabetes Mellitus, Fibromyalgia, GERD/Reflux, Hyperlipidemia, Musculoskeletal Disorder, Pneumonia Additional Past Medical History / Comment(s): herniated disc lower back History of Any Multi-Drug Resistant Organisms: MRSA Date of last positivie culture/infection: 2011 MDRO Source:: RT AXILLA Past Surgical History: Back Surgery, Section Additional Past Surgical History / Comment(s): PAIN CLINIC SERVICES. eye surgery, lump taken off vocal cord, LEFT CATARACT REMOVED. NECK SURGERY 2010 C3-C7 Past Anesthesia/Blood Transfusion Reactions: Previous Problems w/ Anesthesia Additional Past Anesthesia/Blood Transfusion Reaction / Comment(s): problem coming out of anesthetic, STATES VERY EMOTIONAL AND ANXIOUS Past Psychological History: Anxiety, Depression Smoking Status: Former smoker Past Alcohol Use History: Rare Past Drug Use History: None Reported - Past Family History Mother Family Medical History: COPD, Dementia, Memory Impairment Additional Family Medical History / Comment(s): depression General Exam Limitations: no limitations General appearance: alert, in no apparent distress Head exam: Present: atraumatic, normocephalic, normal inspection Eye exam: Present: normal appearance, EOMI Neck exam: Present: normal inspection. Absent: meningismus Respiratory exam: Absent: respiratory distress Cardiovascular Exam: Present: regular rate Neurological exam: Present: alert, oriented X3 Psychiatric exam: Present: normal affect, normal mood Expanded Type of lesion: Present: laceration (1 cm laceration to the left index finger) Course Vital Signs 08/20/24 22:46 Temperature 98.3 F Pulse Rate 81 Respiratory 17 Rate Blood Pressure 153/83 O2 Sat by Pulse 98 Oximetry Procedures - Laceration Laceration #1 Consent Obtained: verbal consent Indication: laceration Site: hand (L index) Description: flap Depth: simple, single layer Anesthetic Used: lidocaine 1%, without epi Anesthesia Technique: local infiltration Pre-repair: wound explored, irrigated extensively Type of Sutures: nylon Size of Sutures: 4-0 Number of Sutures: 2 Technique: simple, interrupted Patient Tolerated Procedure: well Medical Decision Making - Medical Decision Making Was pt. sent in by a medical professional or institution (Dr. PA, SENIOR ENVIRONMENTAL SCIENTIST, urgent care, hospital, or alf...) When possible be specific @ -No Did you speak to anyone other than the patient for history (EMS, parent, family, police, friend...)? What history was obtained from this source @ -No Did you review nursing and triage notes (agree or disagree)? Why? @ -I reviewed and agree with nursing and triage notes Were old charts reviewed (outside hosp., previous admission, EMS record, old EKG, old radiological studies, urgent care reports/EKG's, alf records)? Report findings @ -No old charts were reviewed Differential Diagnosis (chest pain, altered mental status, abdominal pain women, abdominal pain men, vaginal bleeding, weakness, fever, dyspnea, syncope, headache, dizziness, GI bleed, back pain, seizure, CVA, palpatations, mental health, musculoskeletal)? @ -Differential includes uncomplicated laceration, vessel injury, nerve injury, fracture, not an all-inclusive list EKG interpreted by me (3pts min.). @ -As above X-rays interpreted by me (1pt min.). @ -None done CT interpreted by me (1pt min.). @ -None done U/S interpreted by me (1pt. min.). @ -None done What testing was considered but not performed or refused? (CT, X-rays, U/S, labs)? Why? @ -None What meds were considered but not given or refused? Why? @ -None Did you discuss the management of the patient with other professionals (professionals i.e. Dr., PA, SENIOR ENVIRONMENTAL SCIENTIST, lab, RT, psych nurse, health and social care teacher, sustainability coordinator, teacher, corrections officer, hospice case manager)? Give summary @ -No Was smoking cessation discussed for >3mins.? @ -No Was critical care preformed (if so, how long)? @ -No Were there social determinants of health that impacted care today? How? (Homelessness, low income, unemployed, alcoholism, drug addiction, transporta tion, low edu. Level, literacy, decrease access to med. care, intermediate, rehab)? @ -No Was there de-escalation of care discussed even if they declined (Discuss DNR or withdrawal of care, Hospice)? DNR status @ -No What co-morbidities impacted this encounter? (DM, HTN, Smoking, COPD, CAD, Cancer, CVA, ARF, Chemo, Hep., AIDS, mental health diagnosis, sleep apnea, morbid obesity)? @ -None Was patient admitted / discharged? Hospital course, mention meds given and route, prescriptions, significant lab abnormalities, going to OR and other pertinent info. @ -54-year-old female presenting with chief complaint of 1 cm laceration the left index finger after trying to cut her dog's dog collar off. She cut the finger with the scissors. Her tetanus is updated today. The wound is irrigated and repaired, see procedure note for details. Patient is educated on wound care and signs of infection. Follow-up with PCP. Report back to ER with any new or worsening symptoms. Discussed return parameters and answered all questions. Patient conveyed verbal understanding and agreed to the plan. I discussed this case in detail with my attending Dr. Jenkins Undiagnosed new problem with uncertain prognosis? @ -No Drug Therapy requiring intensive monitoring for toxicity (Heparin, Nitro, Insulin, Cardizem)? @ -No Were any procedures done? @ -Laceration repair Diagnosis/symptom? @ -Laceration Acute, or Chronic, or Acute on Chronic? @ -Acute Uncomplicated (without systemic symptoms) or Complicated (systemic symptoms)? @ -Uncomplicated Side effects of treatment? @ -No Exacerbation, Progression, or Severe Exacerbation? @ -No Poses a threat to life or bodily function? How? (Chest pain, [place], [place], pneumonia, PE, COPD, DKA, ARF, appy, cholecystitis, CVA, Diverticulitis, Homicidal, Suicidal, threat to staff... and all critical care pts) @ -No Disposition Clinical Impression: Laceration Disposition: HOME SELF-CARE Condition: Good Instructions (If sedation given, give patient instructions): Care For Your Stitches (ED), Finger Laceration (ED) Additional Instructions: Follow-up with PCP. Report back to ER with any new or worsening symptoms. Keep the wound clean dry and covered. Wash regularly with soap and water. Avoid fully submerging the wound in water for prolonged periods of time. Monitor for signs of infection, including but not limited to redness, swelling, warmth, tenderness, discharge, fever. Sutures may be removed in 10 to 14 days Is patient prescribed a controlled substance at d/c from ED?: No Referrals: Rachel Burns DO [Primary Care Provider] - 1-2 days Time of Disposition: 23:37
[2024-08-20 23:43] VITALS: BP 168/83; PULSE 79; RESP 18; TEMP 97.6
[2024-08-20] MEDS: LIDOCAINE 1% INJ 10MG/ML (20 ML MDV) SQ ONE (23:52)
== END 2024-08-20 23:52 | disposition home or self-care (01) ==
LOC: EC 22:40
DX: S61.211A Laceration without foreign body of left index finger without damage to nail, initial encounter (principal); Z88.5 Allergy status to narcotic agent; Z87.891 Personal history of nicotine dependence; Z23 Encounter for immunization; W26.9XXA Contact with unspecified sharp object(s), initial encounter
CPT/HCPCS: 12001; 90471; 90715; 99282